=== PATIENT | male | born 1945 | race Caucasian/White ===

== ENCOUNTER 2016-07-07 20:01 | Emergency (ER) | payer SELFPAY ==
--- NOTE | 2016-07-07 21:56 | ER Document Report ---
ED General - General Chief Complaint: Abdominal Pain >50 Stated Complaint: ABDOMINAL PAIN Notes: Patient is a 70-year-old male with past medical history of chronic alcohol abuse in remission for the last 2 months with associated liver cirrhosis and ascites who presents with diffuse, intermittent abdominal pain that has been getting progressively worse for the last several days. States the pain has been present for at least the past several weeks but became more intolerable in the last several days. Does describe as a constant, crampy pain. Nothing improves or worsens the pain. States he's had similar pain in the past when he required large-volume paracentesis. He has not had any vomiting, diarrhea, fever, or altered mental status. He has not seen his primary care physician regarding today's concerns. TRAVEL OUTSIDE OF THE [place] IN LAST 30 DAYS: No - Related Data Allergies/Adverse Reactions: No Known Allergies Allergy (Verified 07/07/16 20:32) Past Medical History - General Information source: Patient - Social History Smoking Status: Never Smoker Chew tobacco use (# tins/day): No Frequency of alcohol use: None Drug Abuse: None Family History: CAD - Mother age 76 of [place], alcohol and tobacco abuse Father age 66 of ulcer, alcohol and tobacco abuse Patient has suicidal ideation: No Patient has homicidal ideation: No Renal/ Medical History: Denies: Hx Peritoneal Dialysis Musculoskeltal Medical History: Reports Hx Gout Past Surgical History: Reports: Hx Abdominal Surgery - "mesh", Hx Herniorrhaphy - Meds for umbilical hernia, Hx Orthopedic Surgery - R rotator cuff surgery - Immunizations Hx Diphtheria, Pertussis, Tetanus Vaccination: Yes Review of Systems - Review of Systems Notes: Constitutional: Negative for fever. HENT: Negative for sore throat. Eyes: Negative for visual changes. Cardiovascular: Negative for chest pain. Respiratory: Negative for shortness of breath. Gastrointestinal: Positive for abdominal pain, negative for vomiting or diarrhea. Genitourinary: Negative for dysuria. Musculoskeletal: Negative for back pain. Skin: Negative for rash. Neurological: Negative for headaches, weakness or numbness. 10 point ROS negative except as marked above and in HPI. Physical Exam - Vital signs Vitals: Temp Pulse Resp BP Pulse Ox 97.5 F 113 H 20 149/87 H 97 07/07/16 20:13 07/07/16 20:13 07/07/16 20:13 07/07/16 20:13 07/07/16 20:13 Interpretation: Tachycardic Notes: PHYSICAL EXAMINATION: GENERAL: Chronically ill in appearance but in no acute distress HEAD: Atraumatic, normocephalic. EYES: Pupils equal round and reactive to light, extraocular movements intact, sclera anicteric, conjunctiva are normal. ENT: nares patent, oropharynx clear without exudates. Moderately dry mucous membranes. NECK: Normal range of motion, supple without lymphadenopathy LUNGS: Breath sounds clear to auscultation bilaterally and equal. No wheezes rales or rhonchi. HEART: Regular tachycardia without murmurs ABDOMEN: Distended, protuberant abdomen with a fluid wave. Diffuse mild tenderness to palpation without rebound or guarding EXTREMITIES: Normal range of motion, no pitting or edema. No cyanosis. NEUROLOGICAL: No focal neurological deficits. Moves all extremities spontaneously and on command. PSYCH: Normal mood, normal affect. SKIN: Warm, Dry, normal turgor, no rashes or lesions noted. Course - Re-evaluation Re-evalutation: 07/07/16 21:54 Patient presents with signs and symptoms concerning for possible spontaneous bacterial peritonitis. Went to diffuse abdominal pain as well as generalized myalgias. Abdominal exam shows diffuse tenderness without localization of the pain. Paracentesis performed under sterile conditions at the bedside without difficulty or complication. The fluid has been sent for cell count and culture at this time. Basic laboratories also be obtained. If fluid is unremarkable, will proceed with diagnostic imaging to better evaluate for possible biliary pathology, bowel obstruction, or ileus although I suspect these less than son clinical history. 07/08/16 02:38 Periotenal tap negative for SBP. Abdominal exam improved at this time, vitals show mild tachycardia but otherwise unremarkable. CT shows ascites without additional findings. Suspect the pain is related to massive volume ascites. No indication at this time for further imaging or laboratories. I have reviewed at length with the patient the need for close outpatient follow-up as well as therapeutic paracentesis. At this time will discharge with return precautions and follow-up recommendations. Verbal discharge instructions given a the bedside and opportunity for questions given. Medication warnings reviewed. Patient is in agreement with this plan and has verbalized understanding of return precautions and the need for primary care follow-up in the next 24-72 hours. - Vital Signs Vital signs: Temp Pulse Resp BP Pulse Ox 98.2 F 113 H 17 133/74 H 95 07/08/16 01:00 07/07/16 20:13 07/08/16 02:01 07/08/16 02:01 07/08/16 02:01 - Laboratory Result Diagrams: 07/07/16 22:25 07/07/16 22:25 Laboratory results interpreted by me: 07/07/16 07/07/16 22:25 22:25 WBC 12.2 H RBC 3.78 L Hgb 12.3 L Hct 37.1 L MCV 98 H RDW 14.6 H Lymphocytes % 11.5 L Absolute Neutrophils 9.2 H Sodium 135.3 L Chloride 97 L BUN 21 H Total Bilirubin 3.9 H AST 64 H Alkaline Phosphatase 150 H Albumin 3.0 L - Diagnostic Test Radiology reviewed: Reports reviewed - EKG Interpretation by Me Additional EKG results interpreted by me: 07/08/16 03:13 Sinus tachycardia. Rate 118. No ST elevations or depressions. QTC 443 Procedures - Paracentesis LLQ Consent obtained: Yes - verbal Paracentesis pre-procedure: Sterile PPE donned, Chloraprep applied Needle size: 2 Paracentesis location: llq Amount/type of drainage: 10cc yellow Number of attempts: 1 Ultrasound guided: Yes Complications: No Discharge - Discharge Clinical Impression: Ascites Qualifiers: Ascites type: due to alcoholic cirrhosis Qualified Code(s): K70.31 - Alcoholic cirrhosis of liver with ascites Abdominal pain Qualifiers: Abdominal location: generalized Qualified Code(s): R10.84 - Generalized abdominal pain Condition: Good Disposition: HOME, SELF-CARE Additional Instructions: You need to follow-up with a primary care doctor to schedule a therapeutic paracentesis with a GI physician. Do not drink alcohol. Please return to emergency room if you develop fever greater than 100.4F, persistent vomiting, worsening pain, or any other symptoms that are concerning to you. Prescriptions: Oxycodone HCl [Oxycontin Ir 5 Mg Tablet] 1 - 2 mg PO Q4H PRN #15 tablet PRN Reason: For Pain Referrals: CARLOTA RAINES MD [ACTIVE STAFF] - Follow up tomorrow
[2016-07-07 22:48] LABS: FLUID TYPE PERITONEAL
[2016-07-07 22:50] LABS: FLUID APPEARANCE CLEAR; FLUID RBC DILUENT USED NONE USED; FLUID RBC SIDE 1 457; FLUID RBC SIDE 2 469
[2016-07-07 22:51] LABS: ABSOLUTE BASOPHILS # (AUTO) 0.1 10^3/uL (0.0-0.2); ABSOLUTE EOSINOPHILS # (AUTO) 0.1 10^3/uL (0.0-0.6); ABSOLUTE LYMPHOCYTES (AUTO) 1.4 10^3/uL (0.5-4.7); ABSOLUTE MONOCYTES (AUTO) 1.4 10^3/uL (0.1-1.4); ABSOLUTE NEUT (AUTO) 9.2 10^3/uL (1.7-8.2); BASOPHILS % (AUTO) 0.8 % (0-2); EOSINOPHILS % (AUTO) 0.5 % (0-6); HEMATOCRIT 37.1 % (37.9-51.0); HEMOGLOBIN 12.3 g/dL (13.5-17.0); HGB HCT DIFFERENCE -0.2; LYMPHOCYTES % (AUTO) 11.5 % (13-45); MEAN CORPUSCULAR HEMOGLOBIN 32.5 pg (27.0-33.4); MEAN CORPUSCULAR HGB CONC 33.1 g/dL (32.0-36.0); MEAN CORPUSCULAR VOLUME 98 fl (80-97); MONOCYTES % (AUTO) 11.8 % (3-13); RED BLOOD COUNT 3.78 10^6/uL (4.35-5.55); RED CELL DISTRIBUTION WIDTH 14.6 % (11.5-14.0); SEGMENTED NEUTROPHILS % (AUTO) 75.4 % (42-78); WHITE BLOOD COUNT 12.2 10^3/uL (4.0-10.5)
[2016-07-07 22:52] LABS: FLUID RBC DILUTION FACTOR 1
[2016-07-07 22:53] LABS: TOTAL RBC SQUARES COUNTED FLD 225
[2016-07-07 23:11] LABS: ALANINE AMINOTRANSFERASE 42 U/L (21-72); ALKALINE PHOSPHATASE 150 U/L (38-126); ANION GAP 8 (5-19); ASPARTATE AMINO TRANSFERASE 64 U/L (17-59); BILIRUBIN,DIRECT 0.1 mg/dL (0.0-0.3); BILIRUBIN,TOTAL 3.9 mg/dL (0.2-1.3); BLOOD UREA NITROGEN 21 mg/dL (7-20); CALCIUM 9.2 mg/dL (8.4-10.2); CARBON DIOXIDE 30 mmol/L (22-30); CHLORIDE 97 mmol/L (98-107); CREATININE RESULT 0.85 mg/dL (0.52-1.25); GLUCOSE 100 mg/dL (75-110); POTASSIUM 4.6 mmol/L (3.6-5.0); SODIUM 135.3 mmol/L (137-145); TOTAL PROTEIN 6.8 g/dL (6.3-8.2)
[2016-07-08 00:32] LABS: PROTHROMBIN TIME 14.7 SEC (11.4-15.4)
[2016-07-08] MEDS ORDERED: OXYCODONE HCL IR 5 MG TABLET PO ONE (03:35)
[2016-07-08 04:46] VITALS: BP 137/77
--- NOTE | 2016-07-08 15:17 | EKG REPORT ---
SEVERITY:- ABNORMAL ECG - SINUS TACHYCARDIA MULTIFORM VENTRICULAR PREMATURE COMPLEXES LEFT AXIS DEVIATION BORDERLINE R WAVE PROGRESSION, ANTERIOR LEADS NONSPECIFIC T ABNORMALITIES, LATERAL LEADS : Confirmed by: Haley Garcia MD 08-Jul-2016 15:16:21
== END 2016-07-08 04:40 | disposition home or self-care (01) ==
LOC: ER 20:01
PROC: 0W9G3ZZ Drainage of Peritoneal Cavity, Percutaneous Approach (ICD-10-PCS; principal; 2016-07-07)
DX: K70.31 Alcoholic cirrhosis of liver with ascites (principal); R00.0 Tachycardia, unspecified; R10.84 Generalized abdominal pain; M79.1 Myalgia
CPT/HCPCS: 36415; 74177; 80053; 82140; 85025; 85610; 87070; 87075; 87205; 89050; 93005; 93010; 99285

== ENCOUNTER 2016-07-17 19:24 | Inpatient (IN) | payer MEDICARE ==
--- NOTE | 2016-07-17 19:44 | ER Document Report ---
ED Fall - General Stated Complaint: FLANK PAIN/POSSIBLE LIVER FAILURE Time seen by provider: 19:43 Mode of Arrival: Medic Information source: Emergency Med Personnel TRAVEL OUTSIDE OF THE [place] IN LAST 30 DAYS: No - HPI Patient complains to provider of: fall, confusion Where: Home Associated symptoms: Dazed/confused Location of injury/pain: Back Quality of pain: Achy Severity: Moderate Pain Level: 2 Notes: Patient is a 70-year-old male brought to the emergency room by EMS for complaints of a fall, patient has a history of alcoholic cirrhosis and ascites, EMS reports that they had to pick him up off the floor, where he was wedged between the dresser and the bed, patient says he fell there 3 days ago and has been unable to get up on his own, he is covered in his own urine and feces, EMS reports that the home that he was living and is deplorable with cockroaches all over the place, patient complains of some low back pain, as well as statistical swelling, states his last alcoholic beverage was April of last year, otherwise he is a poor historian, disheveled, and appears to be chronically ill - Related data Allergies/Adverse Reactions: No Known Allergies Allergy (Verified 07/07/16 20:32) Past Medical History - General Information source: Patient, Emergency Med Personnel - Social History Smoking Status: Unknown if Ever Smoked Family History: CAD - Mother age 76 of [place], alcohol and tobacco abuse Father age 66 of ulcer, alcohol and tobacco abuse Renal/ Medical History: Denies: Hx Peritoneal Dialysis Musculoskeltal Medical History: Reports Hx Gout Past Surgical History: Reports: Hx Abdominal Surgery - "mesh", Hx Herniorrhaphy - Meds for umbilical hernia, Hx Orthopedic Surgery - R rotator cuff surgery - Immunizations Hx Diphtheria, Pertussis, Tetanus Vaccination: Yes Review of Systems - Review of Systems Constitutional: Weakness EENT: No symptoms reported Cardiovascular: No symptoms reported Respiratory: No symptoms reported Gastrointestinal: Abdomen distended Genitourinary: Incontinence Male Genitourinary: No symptoms reported Musculoskeletal: Back pain Skin: Other - Jaundice Hematologic/Lymphatic: No symptoms reported Neurological/Psychological: Confusion -: Yes All other systems reviewed and negative Physical Exam - Vital signs Vitals: Temp Pulse Resp Pulse Ox 97.2 F 123 H 22 H 94 07/17/16 19:43 07/17/16 19:43 07/17/16 19:43 07/17/16 19:43 Interpretation: Tachycardic - General General appearance: Alert, Other - Chronically ill-appearing and confused - HEENT Head: Normocephalic, Atraumatic Eyes: Normal Conjunctiva: Icteric Extraocular movements intact: Yes Eyelashes: Normal Pupils: PERRL Mucous membranes: Dry - Respiratory Respiratory status: No respiratory distress Chest status: Nontender Breath sounds: Normal Chest palpation: Normal - Cardiovascular Rhythm: Regular Heart sounds: Normal auscultation Murmur: No - Abdominal Inspection: Caput medussa Distension: Distended, Fluid wave Tenderness: Nontender Organomegaly: No organomegaly - Genitourinary Tenderness: Other - Edematous scrotum - Back Back: Normal, Other - Patient with 23-4 cm areas of stage II ulceration - Extremities General upper extremity: Normal inspection, Nontender, Normal color, Normal ROM , Normal temperature General lower extremity: Normal inspection, Nontender, Edema, Normal color, Normal ROM, Normal temperature. No: Lakisha's sign - Neurological Cognition: Confused [place] Coma Scale Eye Opening: Spontaneous [place] Coma Scale Verbal: Confused [place] Coma Scale Motor: Obeys Commands Tanja Coma Scale Total: 14 Speech: Other - slurred Sensory: Normal - Psychological Associated symptoms: Normal affect, Normal mood - Skin Skin Temperature: Warm Skin Moisture: Dry Skin Color: Jaundiced Course - Re-evaluation Re-evalutation: 07/18/16 06:20 Patient in poor health, chronically, disheveled, odorous, jaundiced, tachycardic , discussed with the hospitalist who agrees to admit for further evaluation and treatment - Vital Signs Vital signs: Temp Pulse Resp BP Pulse Ox 97.8 F 123 H 16 122/82 93 07/18/16 04:04 07/17/16 19:43 07/18/16 04:01 07/18/16 04:00 07/18/16 04:01 - Laboratory Result Diagrams: 07/17/16 22:30 07/17/16 21:00 Laboratory results interpreted by me: 07/17/16 07/17/16 07/17/16 21:00 21:00 21:00 RBC Hgb Hct RDW Plt Count Monocytes % Absolute Monocytes PT 17.6 H APTT 36.4 H BUN 29 H Total Bilirubin 4.7 H Direct Bilirubin 0.8 H AST 69 H Alkaline Phosphatase 143 H Ammonia 40.0 H Albumin 3.0 L Urine Protein Urine Ketones Urine Blood Urine Bilirubin Urine Urobilinogen Ur Leukocyte Esterase 07/17/16 07/17/16 22:30 22:55 RBC 3.90 L Hgb 12.4 L Hct 36.8 L RDW 14.9 H Plt Count 149 L Monocytes % 17.3 H Absolute Monocytes 1.7 H PT APTT BUN Total Bilirubin Direct Bilirubin AST Alkaline Phosphatase Ammonia Albumin Urine Protein 30 H Urine Ketones TRACE H Urine Blood MODERATE H Urine Bilirubin MODERATE H Urine Urobilinogen 4.0 H Ur Leukocyte Esterase MODERATE H - Diagnostic Test Radiology reviewed: Image reviewed, Reports reviewed - Transfer of Care Care transferred to following provider: Dr. Locke Critical Care Note - Critical Care Note Total time excluding time spent on procedures (mins): 30 Comments: Patient tachycardic, confused, hypoxic at times, with end-stage liver disease, requiring admission to the hospital service Discharge - Discharge Clinical Impression: Hepatic encephalopathy, Generalized weakness, End stage liver disease Urinary tract infection Qualifiers: Urinary tract infection type: site unspecified Hematuria presence: without hematuria Qualified Code(s): N39.0 - Urinary tract infection, site not specified Condition: Fair Disposition: ADMITTED INPATIENT Admitting Provider: Hospitalist Unit Admitted: Telemetry
[2016-07-17 21:49] LABS: PROTHROMBIN TIME 17.6 SEC (11.4-15.4)
[2016-07-17 21:50] LABS: PARTIAL THROMBOPLASTIN TIME 36.4 SEC (23.5-35.8)
[2016-07-17 22:04] LABS: ALANINE AMINOTRANSFERASE 44 U/L (21-72); ALCOHOL < 10 mg/dL (NONE DETECTED); ALKALINE PHOSPHATASE 143 U/L (38-126); ANION GAP 15 (5-19); ASPARTATE AMINO TRANSFERASE 69 U/L (17-59); BILIRUBIN,DIRECT 0.8 mg/dL (0.0-0.3); BILIRUBIN,TOTAL 4.7 mg/dL (0.2-1.3); BLOOD UREA NITROGEN 29 mg/dL (7-20); CALCIUM 9.8 mg/dL (8.4-10.2); CARBON DIOXIDE 25 mmol/L (22-30); CHLORIDE 99 mmol/L (98-107); CREATINE KINASE 108 U/L (55-170); CREATININE RESULT 1.03 mg/dL (0.52-1.25); GLUCOSE 79 mg/dL (75-110); LIPASE 137.3 U/L (23-300); POTASSIUM 4.3 mmol/L (3.6-5.0); SODIUM 138.6 mmol/L (137-145); TOTAL PROTEIN 6.8 g/dL (6.3-8.2)
[2016-07-17 22:15] LABS: CREATINE KINASE MB 1.53 ng/mL (<4.55); TROPONIN I 0.018 ng/mL
[2016-07-17 22:41] LABS: ABSOLUTE BASOPHILS # (AUTO) 0.1 10^3/uL (0.0-0.2); ABSOLUTE EOSINOPHILS # (AUTO) 0.1 10^3/uL (0.0-0.6); ABSOLUTE LYMPHOCYTES (AUTO) 1.3 10^3/uL (0.5-4.7); ABSOLUTE MONOCYTES (AUTO) 1.7 10^3/uL (0.1-1.4); ABSOLUTE NEUT (AUTO) 6.6 10^3/uL (1.7-8.2); BASOPHILS % (AUTO) 0.7 % (0-2); EOSINOPHILS % (AUTO) 0.7 % (0-6); HEMATOCRIT 36.8 % (37.9-51.0); HEMOGLOBIN 12.4 g/dL (13.5-17.0); HGB HCT DIFFERENCE 0.4; LYMPHOCYTES % (AUTO) 13.2 % (13-45); MEAN CORPUSCULAR HEMOGLOBIN 31.8 pg (27.0-33.4); MEAN CORPUSCULAR HGB CONC 33.6 g/dL (32.0-36.0); MONOCYTES % (AUTO) 17.3 % (3-13); RED CELL DISTRIBUTION WIDTH 14.9 % (11.5-14.0); SEGMENTED NEUTROPHILS % (AUTO) 68.1 % (42-78); WHITE BLOOD COUNT 9.6 10^3/uL (4.0-10.5)
[2016-07-17 22:43] LABS: MEAN CORPUSCULAR VOLUME 94 fl (80-97)
[2016-07-17 23:17] LABS: APPEARANCE,URINE CLOUDY; BILIRUBIN,URINE MODERATE (NEGATIVE); GLUCOSE, URINE NEGATIVE (NEGATIVE); KETONES,URINE TRACE mg/dL (NEGATIVE); LEUKOCYTE ESTERASE,URINE MODERATE (NEGATIVE); NITRITE,URINE NEGATIVE (NEGATIVE); PROTEIN,URINE 30 mg/dL (NEGATIVE); URINE SPECIFIC GRAVITY 1.017
[2016-07-17] MEDS ORDERED: NORMAL SALINE 1000 ML 500 ML IV PRN (23:34)
[2016-07-18] MEDS ORDERED: CEFTRIAXONE INJ 1000 MG VIAL IV ONE (02:00)
[2016-07-18] MEDS ORDERED: LACTULOSE SYRUP 20 GM/30 ML UDCUP PO ONE (05:14)
[2016-07-18] MEDS ORDERED: FUROSEMIDE INJ/PF 40 MG/4 ML SDV IV SCH (05:15)
[2016-07-18] MEDS ORDERED: LEVOFLOXACIN 750 MG/D5W RTU 750 MG/150 ML RTUPB IV ONE (06:00)
[2016-07-18 06:05] LABS: URINE BARBITURATES SCREEN NEGATIVE; URINE METHADONE SCREEN NEGATIVE; URINE OPIATES LOW NEGATIVE; URINE PHENCYCLIDINE SCREEN NEGATIVE
[2016-07-18] MEDS ORDERED: MAG HYDROX/AL HYDROX/SIMETH SUSP 30 ML UDCUP PO PRN (06:28)
[2016-07-18] MEDS ORDERED: IPRATROPIUM/ALBUTEROL 0.5-2.5 MG/3 ML AMPUL NEB PRN (06:28)
[2016-07-18] MEDS ORDERED: NORMAL SALINE 1000 ML 1,000 ML IV ONE (06:29)
--- NOTE | 2016-07-18 08:18 | PDOC H&P ---
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 He was brought to the emergency room via EMS who found him disheveled, confused and covered in feces. Brought to the emergency room for evaluation and complains of diffuse pain, urinalysis reveals leukocyte esterase and greater than 100 WBCs, he started on empiric antibiotics and referred to the hospitalist for admission. His abdomen is soft nontender and A urine culture 1 month ago grew E faecalis. Past Medical History Cardiac Medical History: Reports: Hypertension Pulmonary Medical History: Reports: Chronic Obstructive Pulmonary Disease (COPD) GI Medical History: Reports: Cirrhosis Musculoskeltal Medical History: Reports: Gout Psychiatric Medical History: Reports: Alcohol Dependency Past Surgical History Past Surgical History: Reports: Herniorrhaphy - Meds for umbilical hernia, Orthopedic Surgery - R rotator cuff surgery Social History Information Source: Patient, [facility] Records Lives with: Alone Smoking Status: Unknown if Ever Smoked Frequency of Alcohol Use: Heavy Hx Recreational Drug Use: No Hx Prescription Drug Abuse: No - Advance Directive Resuscitation Status: Full Code Family History Family History: CAD - Mother age 76 of [place], alcohol and tobacco abuse Father age 66 of ulcer, alcohol and tobacco abuse Parental Family History Reviewed: Yes Children Family History Reviewed: Yes Sibling(s) Family History Reviewed.: Yes Medication/Allergy Home Medications: Oxycodone HCl [Oxycontin Ir 5 Mg Tablet] 1 - 2 mg PO Q4H PRN #15 tablet Allergies/Adverse Reactions: No Known Allergies Allergy (Verified 07/07/16 20:32) Review of Systems ROS unobtainable: Due to mental status Physical Exam Vital Signs: Temp Pulse Resp BP Pulse Ox 97.4 F 72 18 138/83 H 92 07/18/16 06:52 07/18/16 06:52 07/18/16 06:52 07/18/16 06:52 07/18/16 06:52 Intake & Output 07/16/16 07/17/16 07/18/16 11:59 11:59 11:59 Weight 119.7 kg General appearance: PRESENT: disheveled, mild distress, obese Head exam: PRESENT: atraumatic, normocephalic Eye exam: PRESENT: conjunctiva pink, EOMI, PERRLA. ABSENT: scleral icterus Ear exam: PRESENT: normal external ear exam Mouth exam: PRESENT: dry mucosa Neck exam: ABSENT: carotid bruit, JVD, lymphadenopathy, thyromegaly Respiratory exam: PRESENT: clear to auscultation farhad, unlabored. ABSENT: crackles, rales, rhonchi, wheezes Cardiovascular exam: PRESENT: RRR. ABSENT: diastolic murmur, rubs, systolic murmur Pulses: PRESENT: normal dorsalis pedis pul Vascular exam: PRESENT: normal capillary refill GI/Abdominal exam: PRESENT: ascites, firm, hyperactive bowel sounds. ABSENT: guarding, hernia, Marie's sign, rebound, tenderness Rectal exam: PRESENT: deferred Extremities exam: PRESENT: +2 edema Neurological exam: PRESENT: altered, awake, CN II-XII grossly intact Psychiatric exam: PRESENT: unusual affect Focused psych exam: PRESENT: restlessness Skin exam: PRESENT: other - Patient has 2 3 x 3 cm sacral decubiti stage II Results Impressions: Chest X-Ray 07/17/16 22:40 IMPRESSION: NO ACUTE RADIOGRAPHIC FINDING IN THE CHEST. Pelvis X-Ray 07/17/16 22:40 IMPRESSION: NO ACUTE OSSEOUS ABNORMALITY. DEGENERATIVE CHANGE ABOVE. Limited or Localized CT 07/18/16 02:48 IMPRESSION: PUNCTATE NONOBSTRUCTING LEFT RENAL CALCULUS WITHOUT LOWER URINARY TRACT STONES OR HYDRONEPHROSIS. STABLE DEGREE OF LARGE VOLUME ASCITES IN THE SETTING OF CIRRHOSIS. DIVERTICULOSIS WITHOUT EVIDENCE OF DIVERTICULITIS. Assessment & Plan - Diagnosis (1) Enterococcus faecalis infection Is this a current diagnosis for this admission?: YesPlan: E faecalis of the urine noted 1 month ago UA strongly suggestive of pyuria, evaluation microbiology guiding antibiotics reevaluation of CBC and chemistry (2) End stage liver disease Is this a current diagnosis for this admission?: YesPlan: Patient has chronic elevation of bilirubin with mild coagulopathy, Avoiding hepatotoxic meds, Aldactone, Lasix, vitamin K and lactulose, reevaluation of LFTs (3) Hepatic encephalopathy Is this a current diagnosis for this admission?: YesPlan: Lactulose and clinical evaluation - Time Time Spent: 50 to 70 Minutes
[2016-07-18] MEDS ORDERED: PHYTONADIONE 5 MG TABLET PO ONE (09:00)
[2016-07-18] MEDS: DOCUSATE SODIUM 100 MG CAPSULE PO SCH ×2 (09:40→17:14)
--- NOTE | 2016-07-18 09:40 | PDOC PROGRESS REPORT ---
Subjective Progress Note for:: 07/18/16 Subjective:: The patient is currently seen on rounds. The patient is quite groggy. The patient's ammonia was elevated. She does admit to some abdominal tenderness. The patient states that he has had a paracentesis in the past and agrees to another one today. There've been no reported episodes of vomiting nor diarrhea. The patient is unable to provide any reliable history. Physical Exam Vital Signs: Temp Pulse Resp BP Pulse Ox 97.1 F 117 H 14 147/70 H 98 07/18/16 07:00 07/18/16 07:00 07/18/16 07:00 07/18/16 07:00 07/18/16 07:00 Intake & Output 07/16/16 07/17/16 07/18/16 23:59 23:59 23:59 Weight 119.7 kg General appearance: PRESENT: cooperative, disheveled Head exam: PRESENT: atraumatic, normocephalic Eye exam: PRESENT: conjunctiva pale, EOMI, PERRLA, scleral icterus Ear exam: PRESENT: normal external ear exam Mouth exam: PRESENT: moist, tongue midline Neck exam: ABSENT: carotid bruit, JVD, lymphadenopathy, thyromegaly Respiratory exam: PRESENT: decreased breath sounds, symmetrical, unlabored. ABSENT: rales, rhonchi, tachypnea, wheezes Cardiovascular exam: PRESENT: irregular rhythm. ABSENT: diastolic murmur, rubs , systolic murmur Pulses: PRESENT: +1 pedal pulses bilateral Vascular exam: PRESENT: pallor GI/Abdominal exam: PRESENT: ascites, distended, firm, normal bowel sounds, tenderness. ABSENT: guarding, mass, organolmegaly, rebound, rigid Rectal exam: PRESENT: deferred Extremities exam: PRESENT: pedal edema, +1 edema. ABSENT: calf tenderness, clubbing Neurological exam: PRESENT: altered - Groggy and delayed, awake, oriented to person, oriented to place, oriented to time, oriented to situation, CN II-XII grossly intact. ABSENT: motor sensory deficit Psychiatric exam: PRESENT: flat affect, unusual affect. ABSENT: homicidal ideation, suicidal ideation Skin exam: PRESENT: dry, intact, jaundice, warm. ABSENT: cyanosis, rash Results Laboratory Results: Labs- Last Values WBC 9.6 10^3/uL (4.0-10.5) 07/17/16 22:30 RBC 3.90 10^6/uL (4.35-5.55) L 07/17/16 22:30 Hgb 12.4 g/dL (13.5-17.0) L 07/17/16 22:30 Hct 36.8 % (37.9-51.0) L 07/17/16 22:30 MCV 94 fl (80-97) D 07/17/16 22:30 MCH 31.8 pg (27.0-33.4) 07/17/16 22:30 MCHC 33.6 g/dL (32.0-36.0) 07/17/16 22:30 RDW 14.9 % (11.5-14.0) H 07/17/16 22:30 Plt Count 149 10^3/uL (150-450) L 07/17/16 22:30 Seg Neutrophils % 68.1 % (42-78) 07/17/16 22:30 Lymphocytes % 13.2 % (13-45) 07/17/16 22:30 Monocytes % 17.3 % (3-13) H 07/17/16 22:30 Eosinophils % 0.7 % (0-6) 07/17/16 22:30 Basophils % 0.7 % (0-2) 07/17/16 22:30 Absolute Neutrophils 6.6 10^3/uL (1.7-8.2) 07/17/16 22:30 Absolute Lymphocytes 1.3 10^3/uL (0.5-4.7) 07/17/16 22:30 Absolute Monocytes 1.7 10^3/uL (0.1-1.4) H 07/17/16 22:30 Absolute Eosinophils 0.1 10^3/uL (0.0-0.6) 07/17/16 22:30 Absolute Basophils 0.1 10^3/uL (0.0-0.2) 07/17/16 22:30 Platelet Estimate Cancelled 07/17/16 21:00 PT 17.6 SEC (11.4-15.4) H 07/17/16 21:00 INR 1.39 07/17/16 21:00 APTT 36.4 SEC (23.5-35.8) H 07/17/16 21:00 Sodium 138.6 mmol/L (137-145) 07/17/16 21:00 Potassium 4.3 mmol/L (3.6-5.0) 07/17/16 21:00 Chloride 99 mmol/L (98-107) 07/17/16 21:00 Carbon Dioxide 25 mmol/L (22-30) 07/17/16 21:00 Anion Gap 15 (5-19) 07/17/16 21:00 BUN 29 mg/dL (7-20) H 07/17/16 21:00 Creatinine 1.03 mg/dL (0.52-1.25) 07/17/16 21:00 Est GFR ( Amer) > 60 (>60) 07/17/16 21:00 Est GFR (Non-Af Amer) > 60 (>60) 07/17/16 21:00 Glucose 79 mg/dL (75-110) 07/17/16 21:00 POC Glucose 83 mg/dL (70-110) 07/18/16 04:01 Calcium 9.8 mg/dL (8.4-10.2) 07/17/16 21:00 Total Bilirubin 4.7 mg/dL (0.2-1.3) H 07/17/16 21:00 Direct Bilirubin 0.8 mg/dL (0.0-0.3) H 07/17/16 21:00 AST 69 U/L (17-59) H 07/17/16 21:00 ALT 44 U/L (21-72) 07/17/16 21:00 Alkaline Phosphatase 143 U/L (38-126) H 07/17/16 21:00 Ammonia 40.0 umol/L (9-33) H 07/17/16 21:00 Creatine Kinase 108 U/L (55-170) 07/17/16 21:00 CK-MB (CK-2) 1.53 ng/mL (<4.55) 07/17/16 21:00 Troponin I 0.018 ng/mL 07/17/16 21:00 Total Protein 6.8 g/dL (6.3-8.2) 07/17/16 21:00 Albumin 3.0 g/dL (3.5-5.0) L 07/17/16 21:00 Lipase 137.3 U/L (23-300) 07/17/16 21:00 Urine Color NEHEMIAS 07/17/16 22:55 Urine Appearance CLOUDY 07/17/16 22:55 Urine pH 5.0 (5.0-9.0) 07/17/16 22:55 Ur Specific [place] 1.017 07/17/16 22:55 Urine Protein 30 mg/dL (NEGATIVE) H 07/17/16 22:55 Urine Glucose (UA) NEGATIVE mg/dL (NEGATIVE) 07/17/16 22:55 Urine Ketones TRACE mg/dL (NEGATIVE) H 07/17/16 22:55 Urine Blood MODERATE (NEGATIVE) H 07/17/16 22:55 Urine Nitrite NEGATIVE (NEGATIVE) 07/17/16 22:55 Urine Bilirubin MODERATE (NEGATIVE) H 07/17/16 22:55 Urine Urobilinogen 4.0 mg/dL (<2.0) H 07/17/16 22:55 Ur Leukocyte Esterase MODERATE (NEGATIVE) H 07/17/16 22:55 Urine WBC (Auto) 113 /HPF 07/17/16 22:55 Urine RBC (Auto) 7 /HPF 07/17/16 22:55 U Hyaline Cast (Auto) 6 /LPF 07/17/16 22:55 Urine WBC Clumps MANY /HPF 07/17/16 22:55 Squamous Epi Cells Auto 20 /HPF 07/17/16 22:55 Urine Mucus (Auto) MANY /LPF 07/17/16 22:55 Urine Ascorbic Acid NEGATIVE (NEGATIVE) 07/17/16 22:55 Urine Opiates Screen NEGATIVE 07/17/16 22:55 Urine Methadone Screen NEGATIVE 07/17/16 22:55 Ur Barbiturates Screen NEGATIVE 07/17/16 22:55 Ur Phencyclidine Scrn NEGATIVE 07/17/16 22:55 Ur Amphetamines Screen NEGATIVE 07/17/16 22:55 U Benzodiazepines Scrn NEGATIVE 07/17/16 22:55 Urine Cocaine Screen NEGATIVE 07/17/16 22:55 U Marijuana (THC) Screen NEGATIVE 07/17/16 22:55 Serum Alcohol < 10 mg/dL (NONE DETECTED) 07/17/16 21:00 Slides for Path Review Cancelled 07/17/16 21:00 Impressions: Chest X-Ray 07/17/16 22:40 IMPRESSION: NO ACUTE RADIOGRAPHIC FINDING IN THE CHEST. Pelvis X-Ray 07/17/16 22:40 IMPRESSION: NO ACUTE OSSEOUS ABNORMALITY. DEGENERATIVE CHANGE ABOVE. Limited or Localized CT 07/18/16 02:48 IMPRESSION: PUNCTATE NONOBSTRUCTING LEFT RENAL CALCULUS WITHOUT LOWER URINARY TRACT STONES OR HYDRONEPHROSIS. STABLE DEGREE OF LARGE VOLUME ASCITES IN THE SETTING OF CIRRHOSIS. DIVERTICULOSIS WITHOUT EVIDENCE OF DIVERTICULITIS. Assessment & Plan - Diagnosis (1) End stage liver disease Is this a current diagnosis for this admission?: YesPlan: The patient's ammonia is elevated. Will schedule lactulose and repeat in the a.m. Will add [place] as well. Will schedule paracentesis and obtain culture. (2) Hepatic encephalopathy Is this a current diagnosis for this admission?: YesPlan: Secondary to #1. (3) Urinary tract infection Qualifiers: Urinary tract infection type: site unspecified Hematuria presence: without hematuria Qualified Code(s): N39.0 - Urinary tract infection, site not specified Is this a current diagnosis for this admission?: YesPlan: Currently awaiting urine culture. Given the patient's history will continue Levaquin. (4) Alcohol abuse Is this a current diagnosis for this admission?: YesPlan: The patient does not have a current dependency as it appears the patient has not drank since February 2016. Will substitute B vitamins. (5) Enterococcus faecalis infection Is this a current diagnosis for this admission?: No (6) Hypertensive urgency Is this a current diagnosis for this admission?: YesPlan: Will add beta susie (7) Hypoalbuminemia Is this a current diagnosis for this admission?: Yes (8) DVT prophylaxis Is this a current diagnosis for this admission?: YesPlan: Will continue subcutaneous heparin - Time Time Spent with patient: 35 or more minutes Medications reviewed and adjusted accordingly: Yes Anticipated discharge: Home Within: within 48 hours
[2016-07-18] MEDS: SPIRONOLACTONE 25 MG TABLET PO SCH ×2 (09:41→23:22)
[2016-07-18] MEDS ORDERED: THIAMINE HCL 100 MG TABLET PO ONE (11:00)
[2016-07-18] MEDS ORDERED: RIFAXIMIN 550 MG TABLET PO ONE (11:00)
[2016-07-18] MEDS: METOPROLOL TARTRATE 50 MG TABLET PO SCH ×2 (11:08→21:02)
[2016-07-18] MEDS: LACTULOSE SYRUP 20 GM/30 ML UDCUP PO SCH ×3 (11:08→17:14)
[2016-07-18] MEDS: FOLIC ACID 1 MG TABLET PO SCH (11:08)
[2016-07-18] MEDS: HEPARIN SOD (PORCINE) 5,000 UNIT/ML 1 ML SYRINGE SUBCUT SCH ×2 (13:51→22:10)
[2016-07-18 14:13] LABS: ALANINE AMINOTRANSFERASE 44 U/L (21-72); ALBUMIN 2.6 g/dL (3.5-5.0); ALKALINE PHOSPHATASE 117 U/L (38-126); ANION GAP 11 (5-19); ASPARTATE AMINO TRANSFERASE 55 U/L (17-59); BILIRUBIN,DIRECT 0.6 mg/dL (0.0-0.3); BILIRUBIN,TOTAL 4.2 mg/dL (0.2-1.3); BLOOD UREA NITROGEN 29 mg/dL (7-20); CALCIUM 9.2 mg/dL (8.4-10.2); CARBON DIOXIDE 26 mmol/L (22-30); CHLORIDE 99 mmol/L (98-107); CREATININE RESULT 1.06 mg/dL (0.52-1.25); GLUCOSE 138 mg/dL (75-110); POTASSIUM 3.8 mmol/L (3.6-5.0); SODIUM 135.9 mmol/L (137-145); TOTAL PROTEIN 5.8 g/dL (6.3-8.2)
[2016-07-18] MEDS: RIFAXIMIN 550 MG TABLET PO SCH (17:14)
[2016-07-19] MEDS: HEPARIN SOD (PORCINE) 5,000 UNIT/ML 1 ML SYRINGE SUBCUT SCH ×3 (06:03→22:48)
[2016-07-19 08:18] LABS: ABSOLUTE EOSINOPHILS # (AUTO) 0.2 10^3/uL (0.0-0.6); ABSOLUTE LYMPHOCYTES (AUTO) 1.5 10^3/uL (0.5-4.7); ABSOLUTE MONOCYTES (AUTO) 1.5 10^3/uL (0.1-1.4); ABSOLUTE NEUT (AUTO) 7.7 10^3/uL (1.7-8.2); BASOPHILS % (AUTO) 0.2 % (0-2); EOSINOPHILS % (AUTO) 1.9 % (0-6); HEMATOCRIT 41.7 % (37.9-51.0); HEMOGLOBIN 14.2 g/dL (13.5-17.0); HGB HCT DIFFERENCE 0.9; LYMPHOCYTES % (AUTO) 13.9 % (13-45); MEAN CORPUSCULAR HEMOGLOBIN 32.3 pg (27.0-33.4); MEAN CORPUSCULAR HGB CONC 34.1 g/dL (32.0-36.0); MEAN CORPUSCULAR VOLUME 95 fl (80-97); MONOCYTES % (AUTO) 13.4 % (3-13); RED CELL DISTRIBUTION WIDTH 14.8 % (11.5-14.0); SEGMENTED NEUTROPHILS % (AUTO) 70.6 % (42-78); WHITE BLOOD COUNT 10.9 10^3/uL (4.0-10.5)
[2016-07-19 08:33] LABS: ALANINE AMINOTRANSFERASE 45 U/L (21-72); ALBUMIN 2.5 g/dL (3.5-5.0); ALKALINE PHOSPHATASE 130 U/L (38-126); ANION GAP 9 (5-19); ASPARTATE AMINO TRANSFERASE 58 U/L (17-59); BILIRUBIN,DIRECT 0.3 mg/dL (0.0-0.3); BILIRUBIN,TOTAL 4.1 mg/dL (0.2-1.3); BLOOD UREA NITROGEN 30 mg/dL (7-20); CALCIUM 9.4 mg/dL (8.4-10.2); CARBON DIOXIDE 27 mmol/L (22-30); CHLORIDE 101 mmol/L (98-107); CREATININE RESULT 1.13 mg/dL (0.52-1.25); GLUCOSE 103 mg/dL (75-110); POTASSIUM 3.8 mmol/L (3.6-5.0); SODIUM 136.5 mmol/L (137-145); TOTAL PROTEIN 5.9 g/dL (6.3-8.2)
[2016-07-19] MEDS ORDERED: LEVOFLOXACIN 750 MG/D5W RTU 750 MG/150 ML RTUPB IV SCH (10:00)
[2016-07-19] MEDS: DOCUSATE SODIUM 100 MG CAPSULE PO SCH ×2 (10:38→18:54)
[2016-07-19] MEDS: FOLIC ACID 1 MG TABLET PO SCH (10:38)
[2016-07-19] MEDS: FUROSEMIDE 40 MG TABLET PO SCH (10:38)
[2016-07-19] MEDS: LACTULOSE SYRUP 20 GM/30 ML UDCUP PO SCH ×3 (10:39→18:54)
[2016-07-19] MEDS: SPIRONOLACTONE 25 MG TABLET PO SCH ×2 (10:39→22:54)
[2016-07-19] MEDS: METOPROLOL TARTRATE 50 MG TABLET PO SCH ×2 (10:39→22:54)
[2016-07-19] MEDS: THIAMINE HCL 100 MG TABLET PO SCH (10:41)
[2016-07-19] MEDS: RIFAXIMIN 550 MG TABLET PO SCH ×2 (10:42→18:54)
[2016-07-19] MEDS ORDERED: ONDANSETRON 4 MG TAB.RAPDIS PO PRN (10:43)
[2016-07-19] MEDS ORDERED: LEVOFLOXACIN 750 MG TABLET PO ONE (12:00)
--- NOTE | 2016-07-19 12:28 | PDOC PROGRESS REPORT ---
Subjective Progress Note for:: 07/19/16 Subjective:: Patient is a 70-year-old male, seen on morning rounds. He presently is resting comfortably in bed. He denies any shortness of breath, cough or dyspnea. He denies any chest pain, dizziness, or headache. He states he has some nausea, denies vomiting or abdominal pain. He underwent paracentesis yesterday afternoon with 5 L of ascites removed. He states his abdominal pain did dissipate after that procedure. He continues to be somewhat lethargic. His ammonia level has improved today however. He denies any other complaints at the present time. Physical Exam Vital Signs: Temp Pulse Resp BP Pulse Ox 97.7 F 92 14 118/68 99 07/19/16 07:26 07/19/16 07:26 07/19/16 07:26 07/19/16 07:26 07/19/16 07:26 Intake & Output 07/18/16 07/19/16 07/20/16 06:59 06:59 06:59 Intake Total 1011 Balance 1011 Weight 119.7 kg 119.7 kg General appearance: PRESENT: no acute distress, disheveled, obese, well- developed, well-nourished Head exam: PRESENT: atraumatic, normocephalic Eye exam: PRESENT: conjunctiva pink, EOMI, PERRLA. ABSENT: scleral icterus Ear exam: PRESENT: normal external ear exam Mouth exam: PRESENT: moist, tongue midline Neck exam: ABSENT: carotid bruit, JVD, lymphadenopathy, thyromegaly Respiratory exam: PRESENT: clear to auscultation farhad. ABSENT: rales, rhonchi, wheezes Pulses: PRESENT: normal dorsalis pedis pul Vascular exam: PRESENT: normal capillary refill GI/Abdominal exam: PRESENT: ascites, distended, normal bowel sounds, soft Rectal exam: PRESENT: deferred Extremities exam: PRESENT: full ROM. ABSENT: calf tenderness, clubbing, pedal edema Musculoskeletal exam: PRESENT: full ROM, normal inspection Neurological exam: PRESENT: alert, altered, awake, oriented to person, oriented to situation, CN II-XII grossly intact Psychiatric exam: PRESENT: flat affect Skin exam: PRESENT: dry, intact, warm. ABSENT: cyanosis, rash Results Laboratory Results: 07/19/16 07:57 07/19/16 07:57 07/18/16 07/19/16 07/19/16 13:20 07:57 07:57 WBC 10.9 H RBC 4.40 Hgb 14.2 Hct 41.7 MCV 95 MCH 32.3 MCHC 34.1 RDW 14.8 H Plt Count 148 L Seg Neutrophils % 70.6 Lymphocytes % 13.9 Monocytes % 13.4 H Eosinophils % 1.9 Basophils % 0.2 Absolute Neutrophils 7.7 Absolute Lymphocytes 1.5 Absolute Monocytes 1.5 H Absolute Eosinophils 0.2 Absolute Basophils 0.0 Sodium 135.9 L 136.5 L Potassium 3.8 3.8 Chloride 99 101 Carbon Dioxide 26 27 Anion Gap 11 9 BUN 29 H 30 H Creatinine 1.06 1.13 Est GFR ( Amer) > 60 > 60 Est GFR (Non-Af Amer) > 60 > 60 Glucose 138 H 103 Calcium 9.2 9.4 Total Bilirubin 4.2 H 4.1 H AST 55 58 ALT 44 45 Alkaline Phosphatase 117 130 H Ammonia Total Protein 5.8 L 5.9 L Albumin 2.6 L 2.5 L 07/19/16 07:57 WBC RBC Hgb Hct MCV MCH MCHC RDW Plt Count Seg Neutrophils % Lymphocytes % Monocytes % Eosinophils % Basophils % Absolute Neutrophils Absolute Lymphocytes Absolute Monocytes Absolute Eosinophils Absolute Basophils Sodium Potassium Chloride Carbon Dioxide Anion Gap BUN Creatinine Est GFR ( Amer) Est GFR (Non-Af Amer) Glucose Calcium Total Bilirubin AST ALT Alkaline Phosphatase Ammonia 21.2 Total Protein Albumin Impressions: Chest X-Ray 07/17/16 22:40 IMPRESSION: NO ACUTE RADIOGRAPHIC FINDING IN THE CHEST. Pelvis X-Ray 07/17/16 22:40 IMPRESSION: NO ACUTE OSSEOUS ABNORMALITY. DEGENERATIVE CHANGE ABOVE. Paracentesis Ultrasound 07/18/16 00:00 IMPRESSION: Successful ultrasound-guided diagnostic and therapeutic paracentesis Limited or Localized CT 07/18/16 02:48 IMPRESSION: PUNCTATE NONOBSTRUCTING LEFT RENAL CALCULUS WITHOUT LOWER URINARY TRACT STONES OR HYDRONEPHROSIS. STABLE DEGREE OF LARGE VOLUME ASCITES IN THE SETTING OF CIRRHOSIS. DIVERTICULOSIS WITHOUT EVIDENCE OF DIVERTICULITIS. Assessment & Plan - Diagnosis (1) Hepatic encephalopathy Is this a current diagnosis for this admission?: YesPlan: Patient with ammonia levels in the 40s upon arrival. Improved today to 21 with lactulose therapy. Most likely secondary to noncompliance of treatment regimen of his end-stage liver disease. (2) End stage liver disease Is this a current diagnosis for this admission?: YesPlan: Continue current medications. Patient had 5 liters of ascites removed by paracentesis yesterday (3) Urinary tract infection Qualifiers: Urinary tract infection type: site unspecified Hematuria presence: without hematuria Qualified Code(s): N39.0 - Urinary tract infection, site not specified Is this a current diagnosis for this admission?: YesPlan: Continue levaquin , now that he's more awake will transition to oral (4) Alcohol abuse Is this a current diagnosis for this admission?: YesPlan: Folic acid and thiamine. Patient has not drank since Feb 2016 (5) Hypoalbuminemia Is this a current diagnosis for this admission?: YesPlan: Will monitor - Time Time Spent with patient: 25-34 minutes Critical Time spent with patient: 15-24 minutes Medications reviewed and adjusted accordingly: Yes
[2016-07-19] MEDS ORDERED: METOPROLOL TARTRATE 50 MG TABLET PO SCH (23:59)
[2016-07-20] MEDS ORDERED: NORMAL SALINE 1000 ML 500 ML IV ONE (00:02)
[2016-07-20] MEDS ORDERED: SPIRONOLACTONE 25 MG TABLET PO SCH ×2 (00:02→22:00)
[2016-07-20] MEDS ORDERED: PROMETHAZINE HCL INJ 25 MG/1 ML VIAL IV PRN (00:40)
[2016-07-20] MEDS: HEPARIN SOD (PORCINE) 5,000 UNIT/ML 1 ML SYRINGE SUBCUT SCH ×3 (06:14→22:48)
[2016-07-20 07:21] LABS: ABSOLUTE LYMPHOCYTES (AUTO) 0.9 10^3/uL (0.5-4.7); ABSOLUTE MONOCYTES (AUTO) 1.4 10^3/uL (0.1-1.4); ABSOLUTE NEUT (AUTO) 11.1 10^3/uL (1.7-8.2); BASOPHILS % (AUTO) 0.1 % (0-2); EOSINOPHILS % (AUTO) 0.1 % (0-6); HEMATOCRIT 46.8 % (37.9-51.0); HEMOGLOBIN 15.6 g/dL (13.5-17.0); LYMPHOCYTES % (AUTO) 6.4 % (13-45); MEAN CORPUSCULAR HEMOGLOBIN 31.8 pg (27.0-33.4); MEAN CORPUSCULAR HGB CONC 33.3 g/dL (32.0-36.0); MEAN CORPUSCULAR VOLUME 95 fl (80-97); MONOCYTES % (AUTO) 10.5 % (3-13); RED BLOOD COUNT 4.91 10^6/uL (4.35-5.55); SEGMENTED NEUTROPHILS % (AUTO) 82.9 % (42-78); WHITE BLOOD COUNT 13.3 10^3/uL (4.0-10.5)
--- NOTE | 2016-07-20 08:22 | EKG REPORT ---
SEVERITY:- ABNORMAL ECG - SINUS RHYTHM ATRIAL PREMATURE COMPLEX LEFT AXIS DEVIATION CONSIDER ANTERIOR INFARCT NONSPECIFIC T ABNORMALITIES, ANT-LAT LEADS : Confirmed by: Theodore Coffman MD 20-Jul-2016 08:21:41
--- NOTE | 2016-07-20 09:38 | PDOC PROGRESS REPORT ---
Subjective Progress Note for:: 07/20/16 Subjective:: The patient is currently seen on rounds. The patient is quite groggy but was able to awaken and answer simple questions. The patient stated that he wanted to natural . The patient had significant episodes of vomiting as well as bradycardia associated with this overnight. No reported episodes of diarrhea in spite of lactulose administration. Physical Exam Vital Signs: Temp Pulse Resp BP Pulse Ox 98.2 F 96 18 109/78 94 07/20/16 08:00 07/20/16 08:00 07/20/16 08:00 07/20/16 08:00 07/20/16 08:00 Intake & Output 07/18/16 07/19/16 07/20/16 23:59 23:59 23:59 Intake Total 691 890 0 Balance 691 890 0 Weight 119.7 kg 119.7 kg 116.7 kg General appearance: PRESENT: cooperative, disheveled Head exam: PRESENT: atraumatic, normocephalic Eye exam: PRESENT: conjunctiva pale, EOMI, PERRLA, scleral icterus Ear exam: PRESENT: normal external ear exam Mouth exam: PRESENT: moist, tongue midline Neck exam: ABSENT: carotid bruit, JVD, lymphadenopathy, thyromegaly Respiratory exam: PRESENT: decreased breath sounds, symmetrical, unlabored. ABSENT: rales, rhonchi, tachypnea, wheezes Cardiovascular exam: PRESENT: irregular rhythm. ABSENT: diastolic murmur, rubs , systolic murmur Pulses: PRESENT: +1 pedal pulses bilateral Vascular exam: PRESENT: pallor GI/Abdominal exam: PRESENT: ascites, distended, firm, normal bowel sounds, tenderness. ABSENT: guarding, mass, organolmegaly, rebound, rigid Rectal exam: PRESENT: deferred Extremities exam: PRESENT: pedal edema, +1 edema. ABSENT: calf tenderness, clubbing Neurological exam: PRESENT: altered - Groggy and delayed, awake, oriented to person, oriented to place, oriented to time, oriented to situation, CN II-XII grossly intact. ABSENT: motor sensory deficit Psychiatric exam: PRESENT: flat affect, unusual affect. ABSENT: homicidal ideation, suicidal ideation Skin exam: PRESENT: dry, intact, jaundice, warm. ABSENT: cyanosis, rash Results Laboratory Results: 07/20/16 06:41 07/19/16 07:57 07/20/16 06:41 WBC 13.3 H RBC 4.91 Hgb 15.6 Hct 46.8 MCV 95 MCH 31.8 MCHC 33.3 RDW 15.0 H Plt Count 157 Seg Neutrophils % 82.9 H Lymphocytes % 6.4 L Monocytes % 10.5 Eosinophils % 0.1 Basophils % 0.1 Absolute Neutrophils 11.1 H Absolute Lymphocytes 0.9 Absolute Monocytes 1.4 Absolute Eosinophils 0.0 Absolute Basophils 0.0 Impressions: Chest X-Ray 07/17/16 22:40 IMPRESSION: NO ACUTE RADIOGRAPHIC FINDING IN THE CHEST. Pelvis X-Ray 07/17/16 22:40 IMPRESSION: NO ACUTE OSSEOUS ABNORMALITY. DEGENERATIVE CHANGE ABOVE. Paracentesis Ultrasound 07/18/16 00:00 IMPRESSION: Successful ultrasound-guided diagnostic and therapeutic paracentesis Limited or Localized CT 07/18/16 02:48 IMPRESSION: PUNCTATE NONOBSTRUCTING LEFT RENAL CALCULUS WITHOUT LOWER URINARY TRACT STONES OR HYDRONEPHROSIS. STABLE DEGREE OF LARGE VOLUME ASCITES IN THE SETTING OF CIRRHOSIS. DIVERTICULOSIS WITHOUT EVIDENCE OF DIVERTICULITIS. Assessment & Plan - Diagnosis (1) End stage liver disease Is this a current diagnosis for this admission?: YesPlan: The patient's ammonia had normalized. Repeat in the a.m. Will give lactulose enema this a.m. given that the patient's nausea and vomiting. Will consult palliative management. (2) Hepatic encephalopathy Is this a current diagnosis for this admission?: YesPlan: Secondary to #1. (3) Urinary tract infection Qualifiers: Urinary tract infection type: site unspecified Hematuria presence: without hematuria Qualified Code(s): N39.0 - Urinary tract infection, site not specified Is this a current diagnosis for this admission?: YesPlan: Currently awaiting urine culture. There appears to be 2 organisms here. Will expand coverage to Zosyn and await finalization. The patient is unable to take by mouth for now. (4) Alcohol abuse Is this a current diagnosis for this admission?: YesPlan: The patient does not have a current dependency as it appears the patient has not drank since February 2016. Will substitute B vitamins. (5) Enterococcus faecalis infection Is this a current diagnosis for this admission?: No (6) Hypertensive urgency Is this a current diagnosis for this admission?: YesPlan: Improved. Will decrease beta susie. (7) Hypoalbuminemia Is this a current diagnosis for this admission?: Yes (8) DVT prophylaxis Is this a current diagnosis for this admission?: YesPlan: Will continue subcutaneous heparin - Time Time Spent with patient: 25-34 minutes Medications reviewed and adjusted accordingly: Yes
[2016-07-20] MEDS ORDERED: LEVOFLOXACIN 750 MG TABLET PO SCH (10:00)
[2016-07-20] MEDS: LACTULOSE SYRUP 20 GM/30 ML UDCUP PO SCH ×3 (11:26→18:16)
[2016-07-20] MEDS: DOCUSATE SODIUM 100 MG CAPSULE PO SCH ×2 (11:28→18:17)
[2016-07-20] MEDS: FOLIC ACID 1 MG TABLET PO SCH (11:29)
[2016-07-20] MEDS: FUROSEMIDE 40 MG TABLET PO SCH (11:29)
[2016-07-20] MEDS: RIFAXIMIN 550 MG TABLET PO SCH ×2 (11:30→18:16)
[2016-07-20] MEDS: THIAMINE HCL 100 MG TABLET PO SCH (11:30)
[2016-07-20] MEDS ORDERED: METOPROLOL TARTRATE 50 MG TABLET PO ONE (12:00)
[2016-07-20] MEDS ORDERED: LACTULOSE SYRUP 20 GM/30 ML UDCUP PR ONE (12:00)
[2016-07-20] MEDS ORDERED: SPIRONOLACTONE 25 MG TABLET PO ONE (12:00)
[2016-07-20] MEDS: PIPERACILLIN SODIUM/TAZOBACTAM 4.5 GM in NORMAL SALINE 100 ML IV SCH ×2 (12:40→18:17)
--- NOTE | 2016-07-20 13:03 | Physician Advisory Note ---
Physician Advisor ProgressNote .: Pursuant to the plan for [facility], I have reviewed the medical record for this patient. Physician Advisor Statement: Possible documentation opportunities if attending agrees: 1. "Principal dx" - H&P lists "E. faecalis infxn", PN 07/19 lists "hepatic encephalopathy", PN 07/20 lists "end stage liver dz" - please clarify which is the Principal Dx requiring adm. - Also, E. faecalis appears to be cause of UTI 1 mo ago, but not appearing to be present in current cx.s. Please clarify. 2. Please document the dx requiring paracentesis this adm - ?abd pain? bacterial infxn of unclear etiology? ... 3. "mild hyponatremia, likely due to " 4. Please give supporting info for dx of Hypertensive urgency, since BP's in VS section aren't > 180 systolic or <120 diastolic. 5. ? - "SIRS, developing 07/20, likely due to " [or do you think he's developing "possible sepsis, due to ___"?] As always, if concerned about any unstable VS or abnormal labs, please comment on them & note what doing about them, & please document each day the potential clinical problems you are concerned could occur if pt not kept in hospital for tx at this time. Thanks for your help with documentation accuracy/specificity improvement! Marycarmen Taylor MD [facility] Physician Advisor, Fellow of Hospital Medicine
[2016-07-20] MEDS ORDERED: METOPROLOL TARTRATE 50 MG TABLET PO SCH (22:00)
[2016-07-20] MEDS: METOPROLOL TARTRATE 25 MG TABLET PO SCH (22:48)
[2016-07-21] MEDS: PIPERACILLIN SODIUM/TAZOBACTAM 4.5 GM in NORMAL SALINE 100 ML IV SCH ×2 (00:56→05:08)
[2016-07-21] MEDS: PROMETHAZINE HCL INJ 25 MG/1 ML VIAL IV PRN (03:24)
[2016-07-21 07:48] LABS: HEMATOCRIT 42.6 % (37.9-51.0); HEMOGLOBIN 14.1 g/dL (13.5-17.0); HGB HCT DIFFERENCE -0.3; MEAN CORPUSCULAR HEMOGLOBIN 31.7 pg (27.0-33.4); MEAN CORPUSCULAR HGB CONC 33.1 g/dL (32.0-36.0); MEAN CORPUSCULAR VOLUME 96 fl (80-97); RED BLOOD COUNT 4.46 10^6/uL (4.35-5.55); RED CELL DISTRIBUTION WIDTH 14.9 % (11.5-14.0); WHITE BLOOD COUNT 26.1 10^3/uL (4.0-10.5)
[2016-07-21 08:09] LABS: ANION GAP 9 (5-19); BLOOD UREA NITROGEN 48 mg/dL (7-20); CALCIUM 9.4 mg/dL (8.4-10.2); CARBON DIOXIDE 26 mmol/L (22-30); CHLORIDE 99 mmol/L (98-107); CREATININE RESULT 3.02 mg/dL (0.52-1.25); GLUCOSE 103 mg/dL (75-110); MAGNESIUM 1.6 mg/dL (1.6-2.3)
[2016-07-21 08:22] LABS: BASOPHILS % (MANUAL) 0 % (0-2); EOSINOPHILS % (MANUAL) 0 % (0-6); LYMPHOCYTES % (MANUAL) 4 % (13-45); RBC MORPHOLOGY COMMENT NORMO-CYTIC/CHROMIC; TOTAL CELLS COUNTED 100; TOXIC GRANULATION 2+; TOXIC VACUOLATION PRESENT
--- NOTE | 2016-07-21 09:37 | PDOC PROGRESS REPORT ---
Subjective Progress Note for:: 07/21/16 Subjective:: The patient is currently seen on rounds. The patient is able to awaken and answer simple questions. It appears the patient's vomiting has resolved. The patient states that he does feel better today. Ears the patient's been having some incontinent bowel movements. The patient denies flank pain. Blood pressures have been in a decent range. Physical Exam Vital Signs: Temp Pulse Resp BP Pulse Ox 97.4 F 93 16 117/70 98 07/21/16 07:57 07/21/16 07:57 07/21/16 07:57 07/21/16 07:57 07/21/16 08:42 Intake & Output 07/19/16 07/20/16 07/21/16 23:59 23:59 23:59 Intake Total 890 430 500 Balance 890 430 500 Weight 119.7 kg 116.7 kg 119.6 kg General appearance: PRESENT: cooperative, disheveled Head exam: PRESENT: atraumatic, normocephalic Eye exam: PRESENT: conjunctiva pale, EOMI, PERRLA, scleral icterus Ear exam: PRESENT: normal external ear exam Mouth exam: PRESENT: moist, tongue midline Neck exam: ABSENT: carotid bruit, JVD, lymphadenopathy, thyromegaly Respiratory exam: PRESENT: decreased breath sounds, symmetrical, unlabored. ABSENT: rales, rhonchi, tachypnea, wheezes Cardiovascular exam: PRESENT: irregular rhythm. ABSENT: diastolic murmur, rubs , systolic murmur Pulses: PRESENT: +1 pedal pulses bilateral Vascular exam: PRESENT: pallor GI/Abdominal exam: PRESENT: ascites, distended, firm, normal bowel sounds, tenderness. ABSENT: guarding, mass, organolmegaly, rebound, rigid Rectal exam: PRESENT: deferred Extremities exam: PRESENT: pedal edema, +1 edema. ABSENT: calf tenderness, clubbing Neurological exam: PRESENT: altered - Groggy and delayed, awake, oriented to person, oriented to place, oriented to time, oriented to situation, CN II-XII grossly intact. ABSENT: motor sensory deficit Psychiatric exam: PRESENT: flat affect, unusual affect. ABSENT: homicidal ideation, suicidal ideation Skin exam: PRESENT: dry, intact, jaundice, warm. ABSENT: cyanosis, rash Results Laboratory Results: 07/21/16 07:26 07/21/16 07:26 07/21/16 07/21/16 07/21/16 07:26 07:26 07:26 WBC 26.1 H RBC 4.46 Hgb 14.1 Hct 42.6 MCV 96 MCH 31.7 MCHC 33.1 RDW 14.9 H Plt Count 127 L Seg Neutrophils % Not Reportable Lymphocytes % Not Reportable Monocytes % Not Reportable Eosinophils % Not Reportable Basophils % Not Reportable Absolute Neutrophils Not Reportable Absolute Lymphocytes Not Reportable Absolute Monocytes Not Reportable Absolute Eosinophils Not Reportable Absolute Basophils Not Reportable Sodium 134.0 L Potassium 4.0 Chloride 99 Carbon Dioxide 26 Anion Gap 9 BUN 48 H Creatinine 3.02 H Est GFR ( Amer) 25 L Est GFR (Non-Af Amer) 21 L Glucose 103 Calcium 9.4 Magnesium 1.6 Ammonia < 8.7 L Impressions: Chest X-Ray 07/17/16 22:40 IMPRESSION: NO ACUTE RADIOGRAPHIC FINDING IN THE CHEST. Pelvis X-Ray 07/17/16 22:40 IMPRESSION: NO ACUTE OSSEOUS ABNORMALITY. DEGENERATIVE CHANGE ABOVE. Paracentesis Ultrasound 07/18/16 00:00 IMPRESSION: Successful ultrasound-guided diagnostic and therapeutic paracentesis Limited or Localized CT 07/18/16 02:48 IMPRESSION: PUNCTATE NONOBSTRUCTING LEFT RENAL CALCULUS WITHOUT LOWER URINARY TRACT STONES OR HYDRONEPHROSIS. STABLE DEGREE OF LARGE VOLUME ASCITES IN THE SETTING OF CIRRHOSIS. DIVERTICULOSIS WITHOUT EVIDENCE OF DIVERTICULITIS. Assessment & Plan - Diagnosis (1) Acute renal failure Qualifiers: Acute renal failure type: unspecified Qualified Code(s): N17.9 - Acute kidney failure, unspecified Is this a current diagnosis for this admission?: YesPlan: This could be multifocal differentials do include hepatorenal syndrome, obstructive uropathy given stones, or prerenal azotemia. Will obtain urinalysis and stat renal ultrasound. The patient could possibly be intravascularly volume depleted therefore will gently hydrate however given the patient's hypoalbuminemia most likely his, third spaced from this. (2) End stage liver disease Is this a current diagnosis for this admission?: YesPlan: The patient's ammonia had normalized. Will continue lactulose as well as Xifaxan. Will consult palliative management. (3) Hepatic encephalopathy Is this a current diagnosis for this admission?: YesPlan: Secondary to #2. Improved with ammonia (4) Urinary tract infection Qualifiers: Urinary tract infection type: site unspecified Hematuria presence: without hematuria Qualified Code(s): N39.0 - Urinary tract infection, site not specified Is this a current diagnosis for this admission?: YesPlan: Currently awaiting urine culture. There appears to be 2 organisms here. Will expand coverage to Zosyn and await finalization. Will repeat urine culture (5) Alcohol abuse Is this a current diagnosis for this admission?: YesPlan: The patient does not have a current dependency as it appears the patient has not drank since February 2016. Will substitute B vitamins. (6) Enterococcus faecalis infection Is this a current diagnosis for this admission?: No (7) Hypertensive urgency Is this a current diagnosis for this admission?: YesPlan: Improved. Will decrease beta susie. (8) Hypoalbuminemia Is this a current diagnosis for this admission?: Yes (9) DVT prophylaxis Is this a current diagnosis for this admission?: YesPlan: Will continue subcutaneous heparin - Time Time Spent with patient: 35 or more minutes Medications reviewed and adjusted accordingly: Yes Disposition: The patient is a DO NOT RESUSCITATE DO NOT INTUBATE. Pending patient's symptomatology and diagnostic findings will reevaluate as needed.
[2016-07-21] MEDS: METOPROLOL TARTRATE 25 MG TABLET PO SCH ×2 (11:33→22:10)
[2016-07-21] MEDS: LACTULOSE SYRUP 20 GM/30 ML UDCUP PO SCH ×3 (11:34→18:21)
[2016-07-21] MEDS: THIAMINE HCL 100 MG TABLET PO SCH (11:35)
[2016-07-21] MEDS: FOLIC ACID 1 MG TABLET PO SCH (11:35)
[2016-07-21] MEDS: HEPARIN SOD (PORCINE) 5,000 UNIT/ML 1 ML SYRINGE SUBCUT SCH ×2 (11:35→22:11)
[2016-07-21] MEDS: RIFAXIMIN 550 MG TABLET PO SCH ×2 (11:35→18:21)
[2016-07-21] MEDS: DOCUSATE SODIUM 100 MG CAPSULE PO SCH ×2 (11:36→18:20)
[2016-07-21] MEDS: PIPERACILLIN SODIUM/TAZOBACTAM 2.25 GM in NORMAL SALINE 50 ML IV SCH ×3 (11:51→23:13)
--- NOTE | 2016-07-21 15:34 | Palliative Consultation Report ---
Consultation From:: LUDMILA BANERJEE Consult Reason: Symptom control, nausea/vomiting - HPI HPI: Appreciate consult for this 70 year old male who has been admitted due to symptoms related to ESLD. On admission ammonia was elevated, but other labs were stable. In the last few days, he has resolved his symptoms of encephalopathy as his ammonia levels decreased, but his nausea and vomiting has increased and his renal labs have changed dramatically. He has tight abdomen with ascites and bruising noted on extremities. He is alert but says he feels terrible. He vomited once and coughed up thick mucus repeatedly, having to use Katy suction to remove it from his pharyngeal area. He is too weak and distended to sit up to expectorate. Mr. Dunn says he feels like he is dying. I asked if there is anyone he needs to talk to in case he doesnt get better, but he said no. He is DNR. He lives alone with only neighbors stopping by to help him. Onset: Last week Onset/Duration: Gradual Quality of Pain: Achy Severity: Moderate Pain Level: 2 Associated Symptoms: Nausea, Vomiting, Shortness of breath, Sore throat, Weakness Exacerbated by: Food Relieved by: Remaining still Past Medical History(Consults) - General Information Source: Patient, [facility] Records Home Medications: No Home Medications 07/18/16 Allergies/Adverse Reactions: No Known Allergies Allergy (Verified 07/07/16 20:32) - Social History Lives with: Alone Family History: CAD - Mother age 76 of [place], alcohol and tobacco abuse Father age 66 of ulcer, alcohol and tobacco abuse Parental Family History Reviewed: No Children Family History Reviewed: No Sibling(s) Family History Reviewed.: No Smoking Status: Unknown if Ever Smoked Frequency of Alcohol Use: Heavy Hx Recreational Drug Use: No Hx Prescription Drug Abuse: No - Past Medical History Cardiac Medical History: Reports: Hx Hypertension Pulmonary Medical History: Reports: Hx COPD Renal/ Medical History: Denies: Hx Peritoneal Dialysis GI Medical History: Reports: Hx Cirrhosis Musculoskeltal Medical History: Reports Hx Gout Traumatic Medical History: Reports: None Infectious Medical History: Reports: None - Surgical History Past Surgical History: Reports: Hx Abdominal Surgery - "mesh", Hx Herniorrhaphy - Meds for umbilical hernia, Hx Orthopedic Surgery - R rotator cuff surgery Review of systems Constitutional: Chills, Malaise, Weakness EENT: Throat pain Cardiovascular: No symptoms reported Respiratory: Short of breath, Wheezing Gastrointestinal: Abdomen distended, Poor appetite Geniturinary: No symptoms reported Neurological/Psychological: Confusion, Anxiety Ojective:Exam Vital Signs: Temp Pulse Resp BP Pulse Ox 97.4 F 93 16 117/70 98 07/21/16 07:57 07/21/16 07:57 07/21/16 07:57 07/21/16 07:57 07/21/16 08:42 Intake & Output 07/20/16 07/21/16 07/22/16 06:59 06:59 06:59 Intake Total 570 930 Balance 570 930 Weight 116.7 kg 119.6 kg - General General Appearance: Anxious In distress: Mild Note:: Awake with sudden onset vomiting and choking just as I got to his room. After self suctioning he was able to take a few sips of iced tea and I cleaned his mouth with toothette. He is alert and says he is not really having pain, just pressure and nausea. Abd very tight and full with ascites, no BS. 1+ edema in lower extremities, bruising noted on upper and lower extremities. Patient very weak and anxious. - Respiratory Chest Status: Pain with cough Breath sounds: Rhonchi, Wheezing - Cardiovascular Rhythm: Regular - Abdominal Distension: Distended Bowel Sounds: Absent Tenderness: Nontender - Extremities Upper extremity: Nontender Lower extremities: Edema - Bruising noted on all extremities Objective-Diagnostic Laboratory: 07/21/16 07:26 07/21/16 07:26 07/21/16 07/21/16 07/21/16 07:26 07:26 07:26 WBC 26.1 H RBC 4.46 Hgb 14.1 Hct 42.6 MCV 96 MCH 31.7 MCHC 33.1 RDW 14.9 H Plt Count 127 L Seg Neutrophils % Not Reportable Lymphocytes % Not Reportable Monocytes % Not Reportable Eosinophils % Not Reportable Basophils % Not Reportable Absolute Neutrophils Not Reportable Absolute Lymphocytes Not Reportable Absolute Monocytes Not Reportable Absolute Eosinophils Not Reportable Absolute Basophils Not Reportable Sodium 134.0 L Potassium 4.0 Chloride 99 Carbon Dioxide 26 Anion Gap 9 BUN 48 H Creatinine 3.02 H Est GFR ( Amer) 25 L Est GFR (Non-Af Amer) 21 L Glucose 103 Calcium 9.4 Magnesium 1.6 Ammonia < 8.7 L Plan and Recommendation Plan and Recommendation: Patients labs show huge decline renal and increase in WBC's in last 2 days. Patient continues iwth ascites, nausea, vomiting and pressure pain in abd. He is awake and alert and states she feels like he is dying. He lives alone and says he only has neighbors to care for him. At present he is eligible for hospice services with his current labs, possible hepato-renal syndrome, ascites and symptoms. However, unless he improves greatly, he will not be able to live alone. He may be appropriate for hospice care center in the next few days of decline continues. At present he is having frequent nausea and vomiting. I would recommend low dose Haldol 0.5 mg q 4 hours sub q to control nausea, lorazapam to control anxiety and nausea. Paracentesis may help his symptoms by relieving pressure. I told patient he is still getting IV antibioics and do not know if they will change but certainly his doctors are watching his infection and treating it. Appreciate consult request and I will follow in next few days. Hospice liason notified of possible hospice care in near future. - Time Spent with Patient Time spent with patient: 40 to 60 Minutes Time: 35 min with patient, 30 min documentation and review
[2016-07-22] MEDS: ACETAMINOPHEN 325 MG TABLET PO PRN ×2 (02:54→19:32)
[2016-07-22] MEDS: NORMAL SALINE 1000 ML 1,000 ML IV PRN ×3 (05:41→22:00)
[2016-07-22] MEDS: PIPERACILLIN SODIUM/TAZOBACTAM 2.25 GM in NORMAL SALINE 50 ML IV SCH ×4 (05:41→23:14)
[2016-07-22 07:15] LABS: HEMATOCRIT 40.1 % (37.9-51.0); HEMOGLOBIN 13.3 g/dL (13.5-17.0); HGB HCT DIFFERENCE -0.2; MEAN CORPUSCULAR HEMOGLOBIN 31.8 pg (27.0-33.4); MEAN CORPUSCULAR HGB CONC 33.2 g/dL (32.0-36.0); MEAN CORPUSCULAR VOLUME 96 fl (80-97); RED BLOOD COUNT 4.19 10^6/uL (4.35-5.55); RED CELL DISTRIBUTION WIDTH 15.2 % (11.5-14.0); WHITE BLOOD COUNT 19.9 10^3/uL (4.0-10.5)
[2016-07-22 07:37] LABS: ANION GAP 9 (5-19); BLOOD UREA NITROGEN 54 mg/dL (7-20); CALCIUM 8.8 mg/dL (8.4-10.2); CARBON DIOXIDE 27 mmol/L (22-30); CHLORIDE 99 mmol/L (98-107); CREATININE RESULT 3.38 mg/dL (0.52-1.25); GLUCOSE 96 mg/dL (75-110); MAGNESIUM 1.6 mg/dL (1.6-2.3); POTASSIUM 3.5 mmol/L (3.6-5.0); SODIUM 135.2 mmol/L (137-145)
[2016-07-22] MEDS: FOLIC ACID 1 MG TABLET PO SCH (10:01)
[2016-07-22] MEDS: THIAMINE HCL 100 MG TABLET PO SCH (10:01)
[2016-07-22] MEDS: RIFAXIMIN 550 MG TABLET PO SCH ×2 (10:02→17:47)
[2016-07-22] MEDS: DOCUSATE SODIUM 100 MG CAPSULE PO SCH ×2 (10:02→17:46)
[2016-07-22] MEDS: METOPROLOL TARTRATE 25 MG TABLET PO SCH ×2 (10:02→22:00)
[2016-07-22] MEDS: LACTULOSE SYRUP 20 GM/30 ML UDCUP PO SCH ×3 (10:03→17:46)
[2016-07-22] MEDS: HEPARIN SOD (PORCINE) 5,000 UNIT/ML 1 ML SYRINGE SUBCUT SCH ×2 (11:55→22:01)
[2016-07-22] MEDS ORDERED: LORAZEPAM INJ 2 MG/1 ML VIAL IV PRN (14:44)
--- NOTE | 2016-07-22 14:54 | PDOC PROGRESS REPORT ---
Subjective Progress Note for:: 07/22/16 Subjective:: The patient is currently seen on rounds. The patient is able to awaken and answer simple questions. It appears the patient's vomiting has resolved. The patient states that he feels terrible today. It appears the patient has been having some urine in his diaper but unable to measure exact output. An out catheter was unsuccessful yesterday per nursing however renal ultrasound revealed a empty bladder. In discussion with the hospice provider it appears the patient will have a bed available at the care center on Sunday. The patient denies flank pain. Blood pressures have been in a decent range. Physical Exam Vital Signs: Temp Pulse Resp BP Pulse Ox 97.2 F 79 22 H 117/52 L 99 07/22/16 12:33 07/22/16 12:33 07/22/16 12:33 07/22/16 12:33 07/22/16 12:33 Intake & Output 07/20/16 07/21/16 07/22/16 23:59 23:59 23:59 Intake Total 430 1037 550 Balance 430 1037 550 Weight 116.7 kg 122.3 kg General appearance: PRESENT: cooperative, disheveled Head exam: PRESENT: atraumatic, normocephalic Eye exam: PRESENT: conjunctiva pale, EOMI, PERRLA, scleral icterus Ear exam: PRESENT: normal external ear exam Mouth exam: PRESENT: moist, tongue midline Neck exam: ABSENT: carotid bruit, JVD, lymphadenopathy, thyromegaly Respiratory exam: PRESENT: decreased breath sounds, symmetrical, unlabored. ABSENT: rales, rhonchi, tachypnea, wheezes Cardiovascular exam: PRESENT: irregular rhythm. ABSENT: diastolic murmur, rubs , systolic murmur Pulses: PRESENT: +1 pedal pulses bilateral Vascular exam: PRESENT: pallor GI/Abdominal exam: PRESENT: ascites, distended, firm, normal bowel sounds, tenderness. ABSENT: guarding, mass, organolmegaly, rebound, rigid Rectal exam: PRESENT: deferred Extremities exam: PRESENT: pedal edema, +1 edema. ABSENT: calf tenderness, clubbing Neurological exam: PRESENT: altered - Groggy and delayed, awake, oriented to person, oriented to place, oriented to time, oriented to situation, CN II-XII grossly intact. ABSENT: motor sensory deficit Psychiatric exam: PRESENT: flat affect, unusual affect. ABSENT: homicidal ideation, suicidal ideation Skin exam: PRESENT: dry, intact, jaundice, warm. ABSENT: cyanosis, rash Results Laboratory Results: 07/22/16 06:53 07/22/16 06:53 07/22/16 07/22/16 06:53 06:53 WBC 19.9 H RBC 4.19 L Hgb 13.3 L Hct 40.1 MCV 96 MCH 31.8 MCHC 33.2 RDW 15.2 H Plt Count 107 L Sodium 135.2 L Potassium 3.5 L Chloride 99 Carbon Dioxide 27 Anion Gap 9 BUN 54 H Creatinine 3.38 H Est GFR ( Amer) 22 L Est GFR (Non-Af Amer) 18 L Glucose 96 Calcium 8.8 Magnesium 1.6 07/18/16 11:45 Abdominal Fluid Gram Stain - Final 07/18/16 11:45 Abdominal Fluid Body Fluid Culture - Final NO AEROBIC OR ANAEROBIC ORGANISMS RECOVERED Impressions: Chest X-Ray 07/17/16 22:40 IMPRESSION: NO ACUTE RADIOGRAPHIC FINDING IN THE CHEST. Pelvis X-Ray 07/17/16 22:40 IMPRESSION: NO ACUTE OSSEOUS ABNORMALITY. DEGENERATIVE CHANGE ABOVE. Paracentesis Ultrasound 07/18/16 00:00 IMPRESSION: Successful ultrasound-guided diagnostic and therapeutic paracentesis Limited or Localized CT 07/18/16 02:48 IMPRESSION: PUNCTATE NONOBSTRUCTING LEFT RENAL CALCULUS WITHOUT LOWER URINARY TRACT STONES OR HYDRONEPHROSIS. STABLE DEGREE OF LARGE VOLUME ASCITES IN THE SETTING OF CIRRHOSIS. DIVERTICULOSIS WITHOUT EVIDENCE OF DIVERTICULITIS. Renal Ultrasound 07/21/16 00:00 IMPRESSION: No significant renal abnormalities were identified. Intra- abdominal and pelvic ascitic fluid is identified. Other findings as noted above Assessment & Plan - Diagnosis (1) Acute renal failure Qualifiers: Acute renal failure type: unspecified Qualified Code(s): N17.9 - Acute kidney failure, unspecified Is this a current diagnosis for this admission?: YesPlan: This could be multifocal differentials do include hepatorenal syndrome, obstructive uropathy given stones, or prerenal azotemia. The patient's creatinine did not improve with fluids the patient's renal ultrasound was not suggestive of an obstructive uropathy. Will obtain urinalysis and culture. The patient could possibly be intravascularly volume depleted therefore will gently hydrate however given the patient's hypoalbuminemia most likely his, third spaced from this. (2) End stage liver disease Is this a current diagnosis for this admission?: YesPlan: The patient's ammonia had normalized. Will continue lactulose as well as Xifaxan. Do appreciate palliative management. (3) Hepatic encephalopathy Is this a current diagnosis for this admission?: YesPlan: Secondary to #2. Improved with ammonia (4) Urinary tract infection Qualifiers: Urinary tract infection type: site unspecified Hematuria presence: without hematuria Qualified Code(s): N39.0 - Urinary tract infection, site not specified Is this a current diagnosis for this admission?: YesPlan: Currently awaiting urine culture. There appears to be 2 organisms here. Will expand coverage to Zosyn and await finalization. Will repeat urine culture (5) Alcohol abuse Is this a current diagnosis for this admission?: YesPlan: The patient does not have a current dependency as it appears the patient has not drank since February 2016. Will substitute B vitamins. (6) Enterococcus faecalis infection Is this a current diagnosis for this admission?: No (7) Hypertensive urgency Is this a current diagnosis for this admission?: YesPlan: Improved. Will decrease beta susie. (8) Hypoalbuminemia Is this a current diagnosis for this admission?: Yes (9) DVT prophylaxis Is this a current diagnosis for this admission?: Yes - Time Time Spent with patient: 25-34 minutes Medications reviewed and adjusted accordingly: Yes Anticipated discharge: Home, Hospice Within: when bed available
[2016-07-23] MEDS: PIPERACILLIN SODIUM/TAZOBACTAM 2.25 GM in NORMAL SALINE 50 ML IV SCH ×2 (06:01→11:49)
[2016-07-23] MEDS: NORMAL SALINE 1000 ML 1,000 ML IV PRN ×2 (06:01→21:37)
[2016-07-23] MEDS ORDERED: LORAZEPAM INJ 2 MG/1 ML VIAL IV ONE (09:15)
[2016-07-23] MEDS: RIFAXIMIN 550 MG TABLET PO SCH ×2 (10:57→17:49)
[2016-07-23] MEDS: FOLIC ACID 1 MG TABLET PO SCH (10:57)
[2016-07-23] MEDS: THIAMINE HCL 100 MG TABLET PO SCH (10:57)
[2016-07-23] MEDS: DOCUSATE SODIUM 100 MG CAPSULE PO SCH ×2 (10:57→17:49)
[2016-07-23] MEDS: LACTULOSE SYRUP 20 GM/30 ML UDCUP PO SCH ×3 (10:58→17:49)
[2016-07-23] MEDS: METOPROLOL TARTRATE 25 MG TABLET PO SCH ×2 (10:59→21:37)
[2016-07-23] MEDS: HEPARIN SOD (PORCINE) 5,000 UNIT/ML 1 ML SYRINGE SUBCUT SCH ×2 (11:03→22:08)
--- NOTE | 2016-07-23 13:28 | PDOC PROGRESS REPORT ---
Subjective Progress Note for:: 07/23/16 Subjective:: The patient is currently seen on rounds. The patient is able to awaken and answer simple questions. It appears the patient's vomiting has resolved. The patient states that he feels terrible today and "doesn't know how much longer he can go on". The patient has had numerous wet briefs and bladder scans are not consistent with significant retention. Renal ultrasound revealed a empty bladder. In discussion with the hospice provider it appears the patient will have a bed available at the care center on Sunday. The patient denies flank pain. Blood pressures have been in a decent range. Physical Exam Vital Signs: Temp Pulse Resp BP Pulse Ox 97.8 F 76 20 121/77 97 07/23/16 11:00 07/23/16 11:00 07/23/16 11:00 07/23/16 11:07/23/16 11:00 Intake & Output 07/21/16 07/22/16 07/23/16 23:59 23:59 23:59 Intake Total 1037 3070 1543 Balance 1037 3070 1543 Weight 122.3 kg 117.7 kg General appearance: PRESENT: cooperative, disheveled Head exam: PRESENT: atraumatic, normocephalic Eye exam: PRESENT: conjunctiva pale, EOMI, PERRLA, scleral icterus Ear exam: PRESENT: normal external ear exam Mouth exam: PRESENT: moist, tongue midline Neck exam: ABSENT: carotid bruit, JVD, lymphadenopathy, thyromegaly Respiratory exam: PRESENT: decreased breath sounds, symmetrical, unlabored. ABSENT: rales, rhonchi, tachypnea, wheezes Cardiovascular exam: PRESENT: irregular rhythm. ABSENT: diastolic murmur, rubs , systolic murmur Pulses: PRESENT: +1 pedal pulses bilateral Vascular exam: PRESENT: pallor GI/Abdominal exam: PRESENT: ascites, distended, firm, normal bowel sounds, tenderness. ABSENT: guarding, mass, organolmegaly, rebound, rigid Rectal exam: PRESENT: deferred Extremities exam: PRESENT: pedal edema, +1 edema. ABSENT: calf tenderness, clubbing Neurological exam: PRESENT: altered - Groggy and delayed, awake, oriented to person, oriented to place, oriented to time, oriented to situation, CN II-XII grossly intact. ABSENT: motor sensory deficit Psychiatric exam: PRESENT: flat affect, unusual affect. ABSENT: homicidal ideation, suicidal ideation Skin exam: PRESENT: dry, intact, jaundice, warm. ABSENT: cyanosis, rash Results Laboratory Results: 07/22/16 06:53 07/22/16 06:53 07/18/16 11:45 Abdominal Fluid Gram Stain - Final 07/18/16 11:45 Abdominal Fluid Body Fluid Culture - Final NO AEROBIC OR ANAEROBIC ORGANISMS RECOVERED Impressions: Chest X-Ray 07/17/16 22:40 IMPRESSION: NO ACUTE RADIOGRAPHIC FINDING IN THE CHEST. Pelvis X-Ray 07/17/16 22:40 IMPRESSION: NO ACUTE OSSEOUS ABNORMALITY. DEGENERATIVE CHANGE ABOVE. Paracentesis Ultrasound 07/18/16 00:00 IMPRESSION: Successful ultrasound-guided diagnostic and therapeutic paracentesis Limited or Localized CT 07/18/16 02:48 IMPRESSION: PUNCTATE NONOBSTRUCTING LEFT RENAL CALCULUS WITHOUT LOWER URINARY TRACT STONES OR HYDRONEPHROSIS. STABLE DEGREE OF LARGE VOLUME ASCITES IN THE SETTING OF CIRRHOSIS. DIVERTICULOSIS WITHOUT EVIDENCE OF DIVERTICULITIS. Renal Ultrasound 07/21/16 00:00 IMPRESSION: No significant renal abnormalities were identified. Intra- abdominal and pelvic ascitic fluid is identified. Other findings as noted above Assessment & Plan - Diagnosis (1) Acute renal failure Qualifiers: Acute renal failure type: unspecified Qualified Code(s): N17.9 - Acute kidney failure, unspecified Is this a current diagnosis for this admission?: YesPlan: This could be multifocal differentials do include hepatorenal syndrome. The patient's creatinine did not improve with fluids the patient's renal ultrasound was not suggestive of an obstructive uropathy. The patient could possibly be intravascularly volume depleted therefore will gently hydrate however given the patient's hypoalbuminemia most likely his, third spaced from this. (2) End stage liver disease Is this a current diagnosis for this admission?: YesPlan: The patient's ammonia had normalized. Will continue lactulose as well as Xifaxan. Do appreciate palliative management. (3) Hepatic encephalopathy Is this a current diagnosis for this admission?: YesPlan: Secondary to #2. Improved with ammonia (4) Urinary tract infection Qualifiers: Urinary tract infection type: site unspecified Hematuria presence: without hematuria Qualified Code(s): N39.0 - Urinary tract infection, site not specified Is this a current diagnosis for this admission?: YesPlan: Both organisms are sensitive to doxycycline. (5) Alcohol abuse Is this a current diagnosis for this admission?: YesPlan: The patient does not have a current dependency as it appears the patient has not drank since February 2016. Will substitute B vitamins. (6) Enterococcus faecalis infection Is this a current diagnosis for this admission?: Yes (7) Hypertensive urgency Is this a current diagnosis for this admission?: YesPlan: Improved. (8) Hypoalbuminemia Is this a current diagnosis for this admission?: Yes (9) DVT prophylaxis Is this a current diagnosis for this admission?: YesPlan: Will continue subcutaneous heparin - Time Time Spent with patient: 25-34 minutes Medications reviewed and adjusted accordingly: Yes Anticipated discharge: Home, Hospice, Other Within: when bed available
[2016-07-23 20:02] LABS: AMORPHOUS SEDIMENT,URINE TRACE /HPF; APPEARANCE,URINE CLEAR; BILIRUBIN,URINE NEGATIVE (NEGATIVE); GLUCOSE, URINE NEGATIVE (NEGATIVE); KETONES,URINE NEGATIVE (NEGATIVE); LEUKOCYTE ESTERASE,URINE NEGATIVE (NEGATIVE); NITRITE,URINE NEGATIVE (NEGATIVE); PROTEIN,URINE NEGATIVE (NEGATIVE); UROBILINOGEN,URINE NEGATIVE mg/dL (<2.0)
[2016-07-23 20:06] LABS: URINE SPECIFIC GRAVITY 1.002
[2016-07-23] MEDS: DOXYCYCLINE HYCLATE 100 MG in DEXTROSE 5%-WATER 250 ML IV SCH (21:37)
[2016-07-24] MEDS: PROMETHAZINE HCL INJ 25 MG/1 ML VIAL IV PRN (02:31)
--- NOTE | 2016-07-24 10:30 | PDOC DISCHARGE SUMMARY ---
General - Admit/Disc Date/PCP Admission Date/Primary Care Provider: 07/18/16 06:28 Discharge Date: 07/24/16 - Discharge Diagnosis (1) Hepatorenal syndrome Is this a current diagnosis for this admission?: Yes (2) End stage liver disease Is this a current diagnosis for this admission?: Yes (3) Hepatic encephalopathy Is this a current diagnosis for this admission?: Yes (4) Urinary tract infection Is this a current diagnosis for this admission?: Yes (5) Enterococcus faecalis infection Is this a current diagnosis for this admission?: Yes (6) Hypertensive urgency Is this a current diagnosis for this admission?: Yes (7) Hypoalbuminemia Is this a current diagnosis for this admission?: Yes (8) Alcohol abuse Is this a current diagnosis for this admission?: Yes (9) DVT prophylaxis Is this a current diagnosis for this admission?: Yes - Additional Information Resuscitation Status: Do Not Resuscitate - DNR/DNI Discharge Diet: As Tolerated Discharge Activity: Activity As Tolerated Home Medications: Doxycycline Hyclate 100 mg PO Q12 #10 capsule 07/24/16 Folic Acid [Folvite 1 mg Tablet] 1 mg PO DAILY tablet 07/24/16 Lactulose [Cephulac Syrup 20 gm/30 ml Udcup] 20 gm PO TID udc 07/24/16 Metoprolol Tartrate [Lopressor 25 mg Tablet] 25 mg PO Q12 tablet 07/24/16 Spironolactone [Aldactone 25 mg Tablet] 12.5 mg PO Q12 tablet 07/24/16 Thiamine HCl [Thiamine 100 mg Tablet] 100 mg PO DAILY tablet 07/24/16 History of Present Illness Patient complains of: Altered mental status History of Present Illness: CARLITOS CALHOUN is a 70 year old male with a past medical history of 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 He was brought to the emergency room via EMS who found him disheveled, confused and covered in feces. Brought to the emergency room for evaluation and complains of diffuse pain, urinalysis reveals leukocyte esterase and greater than 100 WBCs, he started on empiric antibiotics and referred to the hospitalist for admission. His abdomen is soft nontender and A urine culture 1 month ago grew E faecalis. Hospital Course Hospital Course: The patient was admitted to continuous telemetry unit. Urine analysis and culture was obtained. The patient had findings suggestive of a urinary tract infection. Patient's urine culture revealed Escherichia coli and enterococcus which was sensitive to doxycycline and the patient received antibiotic coverage. The patient was noted to have significant ascites and the patient underwent paracentesis and removed 5 liters of fluid. Patient has had multiple paracentesis dating back to 2014. It appears the patient has had significant renal failure in the past and with the patient's low albumin most likely has a more elevated creatinine at baseline the lab values reflect. However during the patient's stay the patient' s creatinine trended up to a GFR of 18. The patient was not noted to have any obstructive uropathy is nor was the patient's creatinine improved with hydration. The patient was unable to tolerate diuretic therapy given his significant hypotension therefore doses have been significantly decreased. The patient has had intermittent nausea and vomiting which is improved with Ativan. The patient has been seen and evaluated by Cynthia Jane with palliative care who feels the patient is appropriate for hospice at the care facility. The patient is in agreement to this. Physical Exam Vital Signs: Temp Pulse Resp BP Pulse Ox 98.2 F 81 20 117/69 98 07/24/16 08:00 07/24/16 08:00 07/24/16 08:00 07/24/16 08:00 07/24/16 08:00 Intake & Output 07/22/16 07/23/16 07/24/16 23:59 23:59 23:59 Intake Total 3070 4048 1296 Balance 3070 4048 1296 Weight 117.7 kg 124 kg General appearance: PRESENT: cooperative, disheveled. ABSENT: well-nourished Head exam: PRESENT: atraumatic, normocephalic Eye exam: PRESENT: conjunctiva pale, PERRLA, scleral icterus Ear exam: PRESENT: normal external ear exam Mouth exam: PRESENT: moist, tongue midline Respiratory exam: PRESENT: decreased breath sounds, symmetrical, unlabored. ABSENT: rales, rhonchi, tachypnea, wheezes Cardiovascular exam: PRESENT: RRR. ABSENT: diastolic murmur, rubs, systolic murmur Pulses: PRESENT: +1 pedal pulses bilateral Vascular exam: PRESENT: pallor GI/Abdominal exam: PRESENT: ascites, firm, normal bowel sounds. ABSENT: distended, guarding, mass, organolmegaly, rebound, tenderness Rectal exam: PRESENT: deferred Extremities exam: PRESENT: pedal edema, +2 edema. ABSENT: calf tenderness, clubbing Neurological exam: PRESENT: alert, awake. ABSENT: motor sensory deficit, normal gait Psychiatric exam: PRESENT: depressed, flat affect. ABSENT: homicidal ideation, suicidal ideation Skin exam: PRESENT: jaundice, pallor Results Laboratory Results: Labs- Last Values WBC 19.9 10^3/uL (4.0-10.5) H 07/22/16 06:53 RBC 4.19 10^6/uL (4.35-5.55) L 07/22/16 06:53 Hgb 13.3 g/dL (13.5-17.0) L 07/22/16 06:53 Hct 40.1 % (37.9-51.0) 07/22/16 06:53 MCV 96 fl (80-97) 07/22/16 06:53 MCH 31.8 pg (27.0-33.4) 07/22/16 06:53 MCHC 33.2 g/dL (32.0-36.0) 07/22/16 06:53 RDW 15.2 % (11.5-14.0) H 07/22/16 06:53 Plt Count 107 10^3/uL (150-450) L 07/22/16 06:53 Total Counted 100 07/21/16 07:26 Seg Neutrophils % Not Reportable 07/21/16 07:26 Seg Neuts % (Manual) 90 % (42-78) H 07/21/16 07:26 Lymphocytes % Not Reportable 07/21/16 07:26 Lymphocytes % (Manual) 4 % (13-45) L 07/21/16 07:26 Monocytes % Not Reportable 07/21/16 07:26 Monocytes % (Manual) 4 % (3-13) 07/21/16 07:26 Eosinophils % Not Reportable 07/21/16 07:26 Eosinophils % (Manual) 0 % (0-6) 07/21/16 07:26 Basophils % Not Reportable 07/21/16 07:26 Basophils % (Manual) 0 % (0-2) 07/21/16 07:26 Metamyelocytes % 2 % (0) H 07/21/16 07:26 Absolute Neutrophils Not Reportable 07/21/16 07:26 Abs Neuts (Manual) 24.0 10^3/uL (1.7-8.2) H 07/21/16 07:26 Absolute Lymphocytes Not Reportable 07/21/16 07:26 Abs Lymphs (Manual) 1.0 10^3/uL (0.5-4.7) 07/21/16 07:26 Absolute Monocytes Not Reportable 07/21/16 07:26 Abs Monocytes (Manual) 1.0 10^3/uL (0.1-1.4) 07/21/16 07:26 Absolute Eosinophils Not Reportable 07/21/16 07:26 Absolute Eos (Manual) 0.0 10^3/uL (0.0-0.6) 07/21/16 07:26 Absolute Basophils Not Reportable 07/21/16 07:26 Abs Basophils (Manual) 0.0 10^3/uL (0.0-0.2) 07/21/16 07:26 Toxic Granulation 2+ 07/21/16 07:26 Toxic Vacuolation PRESENT 07/21/16 07:26 Platelet Estimate Cancelled 07/17/16 21:00 Platelet Comment ADEQUATE 07/21/16 07:26 RBC Morph Comment NORMO-CYTIC/CHROMIC 07/21/16 07:26 PT 17.6 SEC (11.4-15.4) H 07/17/16 21:00 INR 1.39 07/17/16 21:00 APTT 36.4 SEC (23.5-35.8) H 07/17/16 21:00 Sodium 135.2 mmol/L (137-145) L 07/22/16 06:53 Potassium 3.5 mmol/L (3.6-5.0) L 07/22/16 06:53 Chloride 99 mmol/L (98-107) 07/22/16 06:53 Carbon Dioxide 27 mmol/L (22-30) 07/22/16 06:53 Anion Gap 9 (5-19) 07/22/16 06:53 BUN 54 mg/dL (7-20) H 07/22/16 06:53 Creatinine 3.38 mg/dL (0.52-1.25) H 07/22/16 06:53 Est GFR ( Amer) 22 (>60) L 07/22/16 06:53 Est GFR (Non-Af Amer) 18 (>60) L 07/22/16 06:53 Glucose 96 mg/dL (75-110) 07/22/16 06:53 POC Glucose 83 mg/dL (70-110) 07/18/16 04:01 Calcium 8.8 mg/dL (8.4-10.2) 07/22/16 06:53 Magnesium 1.6 mg/dL (1.6-2.3) 07/22/16 06:53 Total Bilirubin 4.1 mg/dL (0.2-1.3) H 07/19/16 07:57 Direct Bilirubin 0.3 mg/dL (0.0-0.3) 07/19/16 07:57 AST 58 U/L (17-59) 07/19/16 07:57 ALT 45 U/L (21-72) 07/19/16 07:57 Alkaline Phosphatase 130 U/L (38-126) H 07/19/16 07:57 Ammonia < 8.7 umol/L (9-33) L 07/21/16 07:26 Creatine Kinase 108 U/L (55-170) 07/17/16 21:00 CK-MB (CK-2) 1.53 ng/mL (<4.55) 07/17/16 21:00 Troponin I 0.018 ng/mL 07/17/16 21:00 Total Protein 5.9 g/dL (6.3-8.2) L 07/19/16 07:57 Albumin 2.5 g/dL (3.5-5.0) L 07/19/16 07:57 Lipase 137.3 U/L (23-300) 07/17/16 21:00 Urine Color NEHEMIAS 07/23/16 19:27 Urine Appearance CLEAR 07/23/16 19:27 Urine pH 6.0 (5.0-9.0) 07/23/16 19:27 Ur Specific [place] 1.002 07/23/16 19:27 Urine Protein NEGATIVE mg/dL (NEGATIVE) 07/23/16 19:27 Urine Glucose (UA) NEGATIVE mg/dL (NEGATIVE) 07/23/16 19:27 Urine Ketones NEGATIVE mg/dL (NEGATIVE) 07/23/16 19:27 Urine Blood NEGATIVE (NEGATIVE) 07/23/16 19:27 Urine Nitrite NEGATIVE (NEGATIVE) 07/23/16 19:27 Urine Bilirubin NEGATIVE (NEGATIVE) 07/23/16 19:27 Urine Urobilinogen NEGATIVE mg/dL (<2.0) 07/23/16 19:27 Ur Leukocyte Esterase NEGATIVE (NEGATIVE) 07/23/16 19:27 Urine WBC (Auto) 1 /HPF 07/23/16 19:27 Urine RBC (Auto) 1 /HPF 07/23/16 19:27 U Hyaline Cast (Auto) 6 /LPF 07/17/16 22:55 Urine WBC Clumps MANY /HPF 07/17/16 22:55 Squamous Epi Cells Auto 20 /HPF 07/17/16 22:55 Amorphous Sediment Auto TRACE /HPF 07/23/16 19:27 Urine Mucus (Auto) MANY /LPF 07/17/16 22:55 Urine Ascorbic Acid NEGATIVE (NEGATIVE) 07/23/16 19:27 Urine Opiates Screen NEGATIVE 07/17/16 22:55 Urine Methadone Screen NEGATIVE 07/17/16 22:55 Ur Barbiturates Screen NEGATIVE 07/17/16 22:55 Ur Phencyclidine Scrn NEGATIVE 07/17/16 22:55 Ur Amphetamines Screen NEGATIVE 07/17/16 22:55 U Benzodiazepines Scrn NEGATIVE 07/17/16 22:55 Urine Cocaine Screen NEGATIVE 07/17/16 22:55 U Marijuana (THC) Screen NEGATIVE 07/17/16 22:55 Serum Alcohol < 10 mg/dL (NONE DETECTED) 07/17/16 21:00 Slides for Path Review Cancelled 07/17/16 21:00 07/23/16 19:27 Urine Culture - Preliminary Clean Catch Midstream NO GROWTH IN 1 DAY 07/18/16 16:00 Blood Culture - Final Blood NO GROWTH IN 5 DAYS 07/18/16 13:20 Blood Culture - Final Blood NO GROWTH IN 5 DAYS 07/18/16 11:45 Gram Stain - Final Abdominal Fluid Body Fluid Culture - Final NO AEROBIC OR ANAEROBIC ORGANISMS RECOVERED 07/17/16 22:55 Urine Culture - Final Clean Catch Midstream Escherichia Coli Enterococcus Faecium (Group D) 07/07/16 21:50 Gram Stain - Final Peritoneal Body Fluid Culture - Final NO AEROBIC OR ANAEROBIC ORGANISMS RECOVERED Impressions: Chest X-Ray 07/17/16 22:40 IMPRESSION: NO ACUTE RADIOGRAPHIC FINDING IN THE CHEST. Pelvis X-Ray 07/17/16 22:40 IMPRESSION: NO ACUTE OSSEOUS ABNORMALITY. DEGENERATIVE CHANGE ABOVE. Paracentesis Ultrasound 07/18/16 00:00 IMPRESSION: Successful ultrasound-guided diagnostic and therapeutic paracentesis Limited or Localized CT 07/18/16 02:48 IMPRESSION: PUNCTATE NONOBSTRUCTING LEFT RENAL CALCULUS WITHOUT LOWER URINARY TRACT STONES OR HYDRONEPHROSIS. STABLE DEGREE OF LARGE VOLUME ASCITES IN THE SETTING OF CIRRHOSIS. DIVERTICULOSIS WITHOUT EVIDENCE OF DIVERTICULITIS. Renal Ultrasound 07/21/16 00:00 IMPRESSION: No significant renal abnormalities were identified. Intra- abdominal and pelvic ascitic fluid is identified. Other findings as noted above Qualifiers PATEINT BEING DISCHARGED WITH ANY OF THE FOLLOWING DIAGNOSIS?: No Plan Discharge Plan: The patient can be discharged to hospice. Time Spent: Greater than 30 Minutes
[2016-07-24] MEDS: THIAMINE HCL 100 MG TABLET PO SCH (10:53)
[2016-07-24] MEDS: LACTULOSE SYRUP 20 GM/30 ML UDCUP PO SCH ×3 (10:53→17:34)
[2016-07-24] MEDS: METOPROLOL TARTRATE 25 MG TABLET PO SCH ×2 (10:53→21:57)
[2016-07-24] MEDS: RIFAXIMIN 550 MG TABLET PO SCH ×2 (10:53→17:34)
[2016-07-24] MEDS: FOLIC ACID 1 MG TABLET PO SCH (10:53)
[2016-07-24] MEDS: DOCUSATE SODIUM 100 MG CAPSULE PO SCH ×2 (10:53→17:31)
[2016-07-24] MEDS: HEPARIN SOD (PORCINE) 5,000 UNIT/ML 1 ML SYRINGE SUBCUT SCH (10:54)
[2016-07-24] MEDS: DOXYCYCLINE HYCLATE 100 MG in DEXTROSE 5%-WATER 250 ML IV SCH ×2 (11:05→21:57)
--- NOTE | 2016-07-24 12:41 | Progress Note ---
Provider Note Provider Note: Palliative Care follow up visit. Patient looks some better, but still is very ill. He reports no more vomiting but is still not eating. He says he is drinking some grape juice and it is staying down. He is more alert today and denying having any pain. IV antibiotics have been changed to doxycycline and WBC's have come down. Abdomen is still very full and firm. No shortness of breath noted at rest, but has conversational dyspnea. Productive cough which patient self suctions is still producing brownish sputum. Mr. Hall admits that he has no one to care for him at home and knows he is unable to live alone with his current condition. [facility], but patient states he doesn't want to go that far away. He is alert enough to make decisions and he would have to sign hospice consent himself. He may need to go to SNF after hospital discharge. Certainly, he is appropriate for hospice services at home or at [facility] or SNF if not admitted under Medicare days. Repeat Paracentesis may lessen his symptoms although it appears ascitic fluid will reaccumulate rapidly as it did last week. WIll be happy to follow and associate merchant liason will also follow to see if there are changes or if he agrees to go to [facility].
[2016-07-24 13:59] LABS: ANION GAP 10 (5-19); BLOOD UREA NITROGEN 60 mg/dL (7-20); CALCIUM 8.8 mg/dL (8.4-10.2); CARBON DIOXIDE 24 mmol/L (22-30); CHLORIDE 105 mmol/L (98-107); CREATININE RESULT 2.28 mg/dL (0.52-1.25); GLUCOSE 127 mg/dL (75-110); SODIUM 138.5 mmol/L (137-145)
[2016-07-24 14:08] LABS: POTASSIUM 3.1 mmol/L (3.6-5.0)
[2016-07-24] MEDS: FUROSEMIDE 40 MG TABLET PO SCH (14:24)
[2016-07-24] MEDS ORDERED: POTASSIUM CHLORIDE 10 MEQ TABLET.SA PO ONE (15:00)
[2016-07-24] MEDS ORDERED: POTASSIUM CHLORIDE 10 MEQ TABLET.SA PO SCH (18:00)
[2016-07-24] MEDS: POTASSIUM CHLORIDE 10 MEQ TABLET.SA PO SCH (21:57)
[2016-07-25] MEDS: HEPARIN SOD (PORCINE) 5,000 UNIT/ML 1 ML SYRINGE SUBCUT SCH ×2 (02:07→11:02)
[2016-07-25] MEDS: POTASSIUM CHLORIDE 10 MEQ TABLET.SA PO SCH (02:12)
[2016-07-25 06:07] LABS: ANION GAP 8 (5-19); BLOOD UREA NITROGEN 60 mg/dL (7-20); CALCIUM 8.5 mg/dL (8.4-10.2); CARBON DIOXIDE 24 mmol/L (22-30); CHLORIDE 106 mmol/L (98-107); CREATININE RESULT 2.03 mg/dL (0.52-1.25); GLUCOSE 111 mg/dL (75-110); MAGNESIUM 1.5 mg/dL (1.6-2.3); POTASSIUM 3.7 mmol/L (3.6-5.0); SODIUM 138.4 mmol/L (137-145)
[2016-07-25 06:26] LABS: HEMATOCRIT 40.1 % (37.9-51.0); HEMOGLOBIN 13.3 g/dL (13.5-17.0); HGB HCT DIFFERENCE -0.2; MEAN CORPUSCULAR HEMOGLOBIN 31.6 pg (27.0-33.4); MEAN CORPUSCULAR VOLUME 96 fl (80-97); RED CELL DISTRIBUTION WIDTH 15.7 % (11.5-14.0); WHITE BLOOD COUNT 14.8 10^3/uL (4.0-10.5)
[2016-07-25] MEDS: METOPROLOL TARTRATE 25 MG TABLET PO SCH (10:47)
[2016-07-25] MEDS: THIAMINE HCL 100 MG TABLET PO SCH (10:47)
[2016-07-25] MEDS: DOXYCYCLINE HYCLATE 100 MG in DEXTROSE 5%-WATER 250 ML IV SCH (10:48)
[2016-07-25] MEDS: DOCUSATE SODIUM 100 MG CAPSULE PO SCH ×2 (10:48→17:41)
[2016-07-25] MEDS: RIFAXIMIN 550 MG TABLET PO SCH (10:48)
[2016-07-25] MEDS: FOLIC ACID 1 MG TABLET PO SCH (10:48)
[2016-07-25] MEDS: LACTULOSE SYRUP 20 GM/30 ML UDCUP PO SCH ×3 (10:48→17:41)
--- NOTE | 2016-07-25 14:01 | PDOC PROGRESS REPORT ---
Subjective Progress Note for:: 07/25/16 Subjective:: Patient is a 70-year-old male, seen on morning rounds. He presently is resting comfortably in bed. He denies any shortness of breath, cough or dyspnea. He denies any chest pain, dizziness, or headache. He states he has some nausea, denies vomiting or abdominal pain. He underwent paracentesis again 3 days ago for removal of 5 liters of ascites. He is presently awaiting rehab placement bed with palliative care of [facility]. He states his abdominal pain did dissipate after that procedure. He continues to be somewhat lethargic. He denies any other complaints at the present time. Physical Exam Vital Signs: Temp Pulse Resp BP Pulse Ox 97.9 F 87 18 112/74 95 07/25/16 12:00 07/25/16 12:00 07/25/16 12:00 07/25/16 12:00 07/25/16 12:00 Intake & Output 07/24/16 07/25/16 07/26/16 06:59 06:59 06:59 Intake Total 3881 2019 300 Output Total 6 Balance 3881 2013 300 Weight 124 kg 123.9 kg General appearance: PRESENT: no acute distress, disheveled, obese, well- developed, well-nourished Head exam: PRESENT: atraumatic, normocephalic Eye exam: PRESENT: conjunctiva pink, EOMI, PERRLA. ABSENT: scleral icterus Ear exam: PRESENT: normal external ear exam Mouth exam: PRESENT: moist, tongue midline Neck exam: ABSENT: carotid bruit, JVD, lymphadenopathy, thyromegaly Respiratory exam: PRESENT: clear to auscultation farhad. ABSENT: rales, rhonchi, wheezes Cardiovascular exam: PRESENT: RRR. ABSENT: diastolic murmur, rubs, systolic murmur Pulses: PRESENT: normal dorsalis pedis pul Vascular exam: ABSENT: normal capillary refill, pallor, other GI/Abdominal exam: PRESENT: ascites, distended, hypoactive bowel sounds, soft, tenderness Rectal exam: PRESENT: deferred Extremities exam: PRESENT: full ROM. ABSENT: calf tenderness, clubbing, pedal edema Neurological exam: PRESENT: alert, awake, oriented to person, oriented to place , oriented to time, oriented to situation, CN II-XII grossly intact. ABSENT: motor sensory deficit Psychiatric exam: PRESENT: appropriate affect, normal mood. ABSENT: homicidal ideation, suicidal ideation Skin exam: PRESENT: dry, intact, warm. ABSENT: cyanosis, rash Results Laboratory Results: 07/25/16 05:28 07/25/16 05:28 07/24/16 07/25/16 07/25/16 13:33 05:28 05:28 WBC 14.8 H RBC 4.20 L Hgb 13.3 L Hct 40.1 MCV 96 MCH 31.6 MCHC 33.0 RDW 15.7 H Plt Count 96 L Sodium 138.5 138.4 Potassium 3.1 L 3.7 Chloride 105 106 Carbon Dioxide 24 24 Anion Gap 10 8 BUN 60 H 60 H Creatinine 2.28 H 2.03 H Est GFR ( Amer) 35 L 40 L Est GFR (Non-Af Amer) 29 L 33 L Glucose 127 H 111 H Calcium 8.8 8.5 Magnesium 1.5 L Ammonia 07/25/16 05:28 WBC RBC Hgb Hct MCV MCH MCHC RDW Plt Count Sodium Potassium Chloride Carbon Dioxide Anion Gap BUN Creatinine Est GFR ( Amer) Est GFR (Non-Af Amer) Glucose Calcium Magnesium Ammonia 15.8 07/23/16 19:27 Clean Catch Midstream Urine Culture - Final NO GROWTH 2 DAYS Impressions: Chest X-Ray 07/17/16 22:40 IMPRESSION: NO ACUTE RADIOGRAPHIC FINDING IN THE CHEST. Pelvis X-Ray 07/17/16 22:40 IMPRESSION: NO ACUTE OSSEOUS ABNORMALITY. DEGENERATIVE CHANGE ABOVE. Paracentesis Ultrasound 07/18/16 00:00 IMPRESSION: Successful ultrasound-guided diagnostic and therapeutic paracentesis Limited or Localized CT 07/18/16 02:48 IMPRESSION: PUNCTATE NONOBSTRUCTING LEFT RENAL CALCULUS WITHOUT LOWER URINARY TRACT STONES OR HYDRONEPHROSIS. STABLE DEGREE OF LARGE VOLUME ASCITES IN THE SETTING OF CIRRHOSIS. DIVERTICULOSIS WITHOUT EVIDENCE OF DIVERTICULITIS. Renal Ultrasound 07/21/16 00:00 IMPRESSION: No significant renal abnormalities were identified. Intra- abdominal and pelvic ascitic fluid is identified. Other findings as noted above Assessment & Plan - Diagnosis (1) Hepatic encephalopathy Is this a current diagnosis for this admission?: YesPlan: Patient with ammonia levels in the 40s upon arrival. Improved today to 15.8. Most likely secondary to noncompliance of treatment regimen of his end-stage liver disease. (2) End stage liver disease Is this a current diagnosis for this admission?: YesPlan: Continue current medications. Patient had 5 liters of ascites removed by paracentesis yesterday (3) Urinary tract infection Qualifiers: Urinary tract infection type: site unspecified Hematuria presence: without hematuria Qualified Code(s): N39.0 - Urinary tract infection, site not specified Is this a current diagnosis for this admission?: YesPlan: Continue , now that he's more awake will transition to oral (4) Alcohol abuse Is this a current diagnosis for this admission?: YesPlan: Folic acid and thiamine. Patient has not drank since Feb 2016 (5) Hypoalbuminemia Is this a current diagnosis for this admission?: YesPlan: Will monitor (6) Hepatorenal syndrome Is this a current diagnosis for this admission?: YesPlan: Creatinine trending downward - Time Time Spent with patient: 25-34 minutes Critical Time spent with patient: 15-24 minutes Medications reviewed and adjusted accordingly: Yes Anticipated discharge: SNF Within: when bed available
[2016-07-25] MEDS: MAGNESIUM OXIDE 400 MG TABLET PO SCH (17:41)
[2016-07-25] MEDS ORDERED: PANTOPRAZOLE SODIUM 40 MG VIAL IV ONE (19:30)
[2016-07-25 20:27] LABS: HEMATOCRIT 39.4 % (37.9-51.0); HEMOGLOBIN 12.9 g/dL (13.5-17.0); HGB HCT DIFFERENCE -0.7; MEAN CORPUSCULAR HEMOGLOBIN 31.5 pg (27.0-33.4); MEAN CORPUSCULAR HGB CONC 32.9 g/dL (32.0-36.0); RED BLOOD COUNT 4.11 10^6/uL (4.35-5.55); RED CELL DISTRIBUTION WIDTH 15.6 % (11.5-14.0); WHITE BLOOD COUNT 17.4 10^3/uL (4.0-10.5)
[2016-07-25 20:41] LABS: MEAN CORPUSCULAR VOLUME 96 fl (80-97)
[2016-07-26] MEDS: METOPROLOL TARTRATE 25 MG TABLET PO SCH ×3 (00:35→21:08)
[2016-07-26] MEDS: DOXYCYCLINE HYCLATE 100 MG TABLET PO SCH ×3 (00:35→21:08)
[2016-07-26] MEDS: HEPARIN SOD (PORCINE) 5,000 UNIT/ML 1 ML SYRINGE SUBCUT SCH ×3 (00:36→23:13)
[2016-07-26] MEDS: PANTOPRAZOLE SODIUM 40 MG VIAL IV SCH ×2 (06:39→18:05)
[2016-07-26] MEDS: SUCRALFATE 1 GM TABLET PO SCH ×3 (07:58→18:06)
[2016-07-26] MEDS: PROMETHAZINE HCL INJ 25 MG/1 ML VIAL IV PRN (09:01)
[2016-07-26] MEDS ORDERED: MORPHINE SULFATE 10 MG/ML INJ IV PRN ×2 (09:17→09:22)
[2016-07-26] MEDS: LACTULOSE SYRUP 20 GM/30 ML UDCUP PO SCH ×3 (09:19→18:06)
[2016-07-26] MEDS: FOLIC ACID 1 MG TABLET PO SCH (09:19)
[2016-07-26] MEDS: DOCUSATE SODIUM 100 MG CAPSULE PO SCH ×2 (09:19→18:06)
[2016-07-26] MEDS: MAGNESIUM OXIDE 400 MG TABLET PO SCH ×2 (09:19→18:06)
[2016-07-26] MEDS: THIAMINE HCL 100 MG TABLET PO SCH (09:19)
--- NOTE | 2016-07-26 17:25 | PDOC PROGRESS REPORT ---
Subjective Progress Note for:: 07/26/16 Subjective:: Patient is a 70-year-old male, seen on morning rounds. He presently is resting comfortably in bed. He denies any shortness of breath, cough or dyspnea. He he started vomiting coffee grounds emesis last evening. He was started on Carafate therapy by the nursing tech. He states he has some nausea, he is now vomiting dark red blood denies vomiting. His color is johnson ashen. We discussed He underwent paracentesis again 3 days ago for removal of 5 liters of ascites. He is presently awaiting care home bed for hospice care. He states his abdominal pain did dissipate after that procedure. He continues to be somewhat lethargic. He states he only wants comfort measures only. His next of kin, his son, has told staff he does not want any involvement in his care or to be called about his condition. Physical Exam Vital Signs: Temp Pulse Resp BP Pulse Ox 98.4 F 188 H 20 88/60 L 96 07/26/16 15:58 07/26/16 15:58 07/26/16 15:58 07/26/16 15:58 07/26/16 15:58 Intake & Output 07/25/16 07/26/16 07/27/16 06:59 06:59 06:59 Intake Total 2019 1296 180 Output Total Balance 2013 1296 180 Weight 123.9 kg 125.2 kg General appearance: PRESENT: disheveled, mild distress, obese, well-developed - to ashen, well-nourished Head exam: PRESENT: atraumatic, normocephalic Eye exam: PRESENT: conjunctiva pink, EOMI, PERRLA. ABSENT: scleral icterus Ear exam: PRESENT: normal external ear exam Mouth exam: PRESENT: dry mucosa, other - old blood in oral cavity Neck exam: ABSENT: carotid bruit, JVD, lymphadenopathy, thyromegaly Respiratory exam: PRESENT: accessory muscle use, crackles, decreased breath sounds, tachypnea Cardiovascular exam: PRESENT: RRR. ABSENT: diastolic murmur, rubs, systolic murmur Pulses: PRESENT: normal dorsalis pedis pul Vascular exam: PRESENT: normal capillary refill GI/Abdominal exam: PRESENT: ascites, distended, hypoactive bowel sounds, soft Rectal exam: PRESENT: deferred Extremities exam: PRESENT: full ROM. ABSENT: calf tenderness, clubbing, pedal edema Neurological exam: PRESENT: alert, awake, oriented to person, oriented to place , oriented to situation, CN II-XII grossly intact. ABSENT: motor sensory deficit Psychiatric exam: PRESENT: flat affect Skin exam: PRESENT: dry, intact, warm. ABSENT: cyanosis, rash Results Laboratory Results: 07/26/16 05:38 07/25/16 05:28 07/25/16 07/26/16 20:15 05:38 WBC 17.4 H Cancelled RBC 4.11 L Cancelled Hgb 12.9 L Cancelled Hct 39.4 Cancelled MCV 96 Cancelled MCH 31.5 Cancelled MCHC 32.9 Cancelled RDW 15.6 H Cancelled Plt Count 92 L Cancelled Impressions: Chest X-Ray 07/17/16 22:40 IMPRESSION: NO ACUTE RADIOGRAPHIC FINDING IN THE CHEST. Pelvis X-Ray 07/17/16 22:40 IMPRESSION: NO ACUTE OSSEOUS ABNORMALITY. DEGENERATIVE CHANGE ABOVE. Paracentesis Ultrasound 07/18/16 00:00 IMPRESSION: Successful ultrasound-guided diagnostic and therapeutic paracentesis Limited or Localized CT 07/18/16 02:48 IMPRESSION: PUNCTATE NONOBSTRUCTING LEFT RENAL CALCULUS WITHOUT LOWER URINARY TRACT STONES OR HYDRONEPHROSIS. STABLE DEGREE OF LARGE VOLUME ASCITES IN THE SETTING OF CIRRHOSIS. DIVERTICULOSIS WITHOUT EVIDENCE OF DIVERTICULITIS. Renal Ultrasound 07/21/16 00:00 IMPRESSION: No significant renal abnormalities were identified. Intra- abdominal and pelvic ascitic fluid is identified. Other findings as noted above Assessment & Plan - Diagnosis (1) Hepatic encephalopathy Is this a current diagnosis for this admission?: YesPlan: Patient with ammonia levels in the 40s upon arrival. Improved today to 15.8. End stage liver disease. He wants comfort measures only .With [facility] (2) End stage liver disease Is this a current diagnosis for this admission?: YesPlan: Continue current medications. Patient had 5 liters of ascites removed by paracentesis yesterday (3) Urinary tract infection Qualifiers: Urinary tract infection type: site unspecified Hematuria presence: without hematuria Qualified Code(s): N39.0 - Urinary tract infection, site not specified Is this a current diagnosis for this admission?: YesPlan: Continue , now that he's more awake will transition to oral (4) Alcohol abuse Is this a current diagnosis for this admission?: YesPlan: Folic acid and thiamine. Patient has not drank since Feb 2016 (5) Hypoalbuminemia Is this a current diagnosis for this admission?: YesPlan: Will monitor (6) Hepatorenal syndrome Is this a current diagnosis for this admission?: YesPlan: Creatinine trending downward (7) GI (gastrointestinal bleed) Qualifiers: Gastritis type: unspecified gastritis Is this a current diagnosis for this admission?: Yes - Time Time Spent with patient: 25-34 minutes Critical Time spent with patient: 15-24 minutes Anticipated discharge: Home - Inpatient Certification Based on my medical assessment, after consideration of the patient's comorbidities, presenting symptoms, or acuity I expect that the services needed warrant INPATIENT care.: Yes
[2016-07-26 20:47] VITALS: BP 127/57
[2016-07-26] MEDS: MORPHINE SULFATE 10 MG/ML INJ SUBCUT PRN ×2 (21:08→23:12)
[2016-07-27] MEDS: MORPHINE SULFATE 10 MG/ML INJ SUBCUT PRN ×9 (01:04→22:31)
[2016-07-27] MEDS: PANTOPRAZOLE SODIUM 40 MG VIAL IV SCH ×2 (05:04→18:47)
[2016-07-27] MEDS: DOCUSATE SODIUM 100 MG CAPSULE PO SCH ×2 (10:14→18:47)
[2016-07-27] MEDS: THIAMINE HCL 100 MG TABLET PO SCH (10:14)
[2016-07-27] MEDS: FOLIC ACID 1 MG TABLET PO SCH (10:14)
[2016-07-27] MEDS: HEPARIN SOD (PORCINE) 5,000 UNIT/ML 1 ML SYRINGE SUBCUT SCH (10:14)
[2016-07-27] MEDS: LACTULOSE SYRUP 20 GM/30 ML UDCUP PO SCH ×2 (10:14→13:31)
[2016-07-27] MEDS: SUCRALFATE 1 GM TABLET PO SCH ×2 (10:14→15:43)
[2016-07-27] MEDS: METOPROLOL TARTRATE 25 MG TABLET PO SCH ×2 (10:14→21:01)
[2016-07-27] MEDS: MAGNESIUM OXIDE 400 MG TABLET PO SCH ×2 (10:14→18:47)
[2016-07-27] MEDS: DOXYCYCLINE HYCLATE 100 MG TABLET PO SCH ×2 (10:14→21:01)
--- NOTE | 2016-07-27 14:33 | PDOC PROGRESS REPORT ---
Subjective Progress Note for:: 07/27/16 Subjective:: The patient is currently lying in bed. Family present the bedside in the patient's care. The patient is completely unresponsive to any form of stimuli. The patient's been seen by hospice and the family has elected for the patient to remain in this facility for the next 24 hours since does appear to be eminent. Patient has anasarca and is having Edy-Espinosa style respirations. Persisting gurgle. However the patient does not appear to be in any pain and is nonresponsive. Physical Exam Vital Signs: Temp Pulse Resp BP Pulse Ox 98.5 F 105 H 21 H 127/57 H 96 07/26/16 20:47 07/26/16 20:47 07/26/16 20:47 07/26/16 20:47 07/27/16 06:04 Intake & Output 07/25/16 07/26/16 07/27/16 23:59 23:59 23:59 Intake Total 555 926 0 Output Total 6 Balance 549 926 0 Weight 123.9 kg 125.2 kg General appearance: PRESENT: disheveled, other - Chronically ill-appearing, anasarca Eye exam: PRESENT: conjunctiva pale, periorbital swelling, scleral icterus Ear exam: PRESENT: normal external ear exam Mouth exam: PRESENT: moist Neck exam: PRESENT: JVD - To the level of the right clavicle. ABSENT: tracheal deviation, tracheostomy Respiratory exam: PRESENT: crackles, rhonchi, symmetrical. ABSENT: unlabored Cardiovascular exam: PRESENT: tachycardia Vascular exam: PRESENT: pallor GI/Abdominal exam: ABSENT: distended Rectal exam: PRESENT: deferred Extremities exam: PRESENT: pedal edema, other - Anasarca Neurological exam: PRESENT: altered - Nonresponsive, awake Skin exam: PRESENT: dry, jaundice, mottled, pallor, petechiae Results Laboratory Results: 07/26/16 05:38 07/25/16 05:28 Impressions: Chest X-Ray 07/17/16 22:40 IMPRESSION: NO ACUTE RADIOGRAPHIC FINDING IN THE CHEST. Pelvis X-Ray 07/17/16 22:40 IMPRESSION: NO ACUTE OSSEOUS ABNORMALITY. DEGENERATIVE CHANGE ABOVE. Paracentesis Ultrasound 07/18/16 00:00 IMPRESSION: Successful ultrasound-guided diagnostic and therapeutic paracentesis Limited or Localized CT 07/18/16 02:48 IMPRESSION: PUNCTATE NONOBSTRUCTING LEFT RENAL CALCULUS WITHOUT LOWER URINARY TRACT STONES OR HYDRONEPHROSIS. STABLE DEGREE OF LARGE VOLUME ASCITES IN THE SETTING OF CIRRHOSIS. DIVERTICULOSIS WITHOUT EVIDENCE OF DIVERTICULITIS. Renal Ultrasound 07/21/16 00:00 IMPRESSION: No significant renal abnormalities were identified. Intra- abdominal and pelvic ascitic fluid is identified. Other findings as noted above Assessment & Plan - Diagnosis (1) Hepatorenal syndrome Is this a current diagnosis for this admission?: YesPlan: The patient's does appear to be eminent. The patient's downtrending creatinine most likely is due to volume and dilution. (2) End stage liver disease Is this a current diagnosis for this admission?: YesPlan: The patient is Comfort Care measures only will DC medications (3) Hepatic encephalopathy Is this a current diagnosis for this admission?: YesPlan: The patient's unresponsive (4) Urinary tract infection Qualifiers: Urinary tract infection type: site unspecified Hematuria presence: without hematuria Qualified Code(s): N39.0 - Urinary tract infection, site not specified Is this a current diagnosis for this admission?: YesPlan: The patient has completed course of antibiotics (5) Enterococcus faecalis infection Is this a current diagnosis for this admission?: Yes (6) Hypertensive urgency Is this a current diagnosis for this admission?: Yes (7) Hypoalbuminemia Is this a current diagnosis for this admission?: Yes (8) Alcohol abuse Is this a current diagnosis for this admission?: YesPlan: The patient does not have a current dependency as it appears the patient has not drank since February 2016. Will substitute B vitamins. (9) DVT prophylaxis Is this a current diagnosis for this admission?: YesPlan: Comfort care now - Time Time Spent with patient: 25-34 minutes Medications reviewed and adjusted accordingly: Yes Anticipated discharge: Acute Rehab Disposition: appears imminent will continue comfort care measures for now.
[2016-07-27] MEDS ORDERED: SCOPOLAMINE HYDROBROMIDE 1.5 MG PATCH.TD72 TD ONE (22:34)
[2016-07-27] MEDS ORDERED: SCOPOLAMINE HYDROBROMIDE 1.5 MG PATCH.TD72 ONE (23:24)
[2016-07-28] MEDS: MORPHINE SULFATE 10 MG/ML INJ SUBCUT PRN ×7 (00:48→15:43)
[2016-07-28] MEDS: PANTOPRAZOLE SODIUM 40 MG VIAL IV SCH (05:07)
[2016-07-28] MEDS: LORAZEPAM INJ 2 MG/1 ML VIAL IM PRN ×3 (10:27→15:44)
[2016-07-28] MEDS: DOCUSATE SODIUM 100 MG CAPSULE PO SCH (10:28)
[2016-07-28] MEDS ORDERED: ATROPINE SULFATE 1% OPH SOLN 5 ML BOTTLE SL SCH (12:00)
--- NOTE | 2016-07-28 16:31 | Death Summary ---
Summary Date : 07/28/16 Time of :: 16:20 Autopsy: No Resuscitation Status: Comfort Measures Only - Final Diagnosis (1) Hepatic encephalopathy Is this a current diagnosis for this admission?: Yes (2) End stage liver disease Is this a current diagnosis for this admission?: Yes (3) Urinary tract infection Is this a current diagnosis for this admission?: Yes (4) Alcohol abuse Is this a current diagnosis for this admission?: Yes (5) Hypoalbuminemia Is this a current diagnosis for this admission?: Yes (6) Hepatorenal syndrome Is this a current diagnosis for this admission?: Yes (7) GI (gastrointestinal bleed) Is this a current diagnosis for this admission?: Yes Hospital Course:: Patient was a 62-year-old male with past medical history of 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 After further workup is found to have high ammonia levels as well as urinary tract infection. He was given lactulose and broad-spectrum IV antibiotics. He was referred to the hospitalist service for admission. He was noted to have significant ascites on exam. He underwent ultrasound-guided paracentesis twice during this hospitalization. Each time 5 L of fluid was removed. After his pneumonia cleared the patient was coherent and able to make decisions for himself. He decided at that time he wanted to be a DO NOT RESUSCITATE, and no longer wanted aggressive measures used to prolong his life. He is agreeable to hospice services. [facility] saw the patient in consult for hospice. Initially he did not meet inpatient criteria. Social work was consult he was going to be placed and have hospice services in a long-term care facility. However on 2016, he still began having upper GI bleeding, and problems with aspiration. Comfort measures were in place. At that time he was reevaluated by [facility] for hospice and felt he was appropriate for inpatient services. Patient's son and ex- asked that has comfort measures be given here because of distance to drive to [place] and a likely imminence of his . His time of 1605 on 07/28/2016. His family was at the bedside at the time.
== END 2016-07-28 19:52 | DRG 432 ==
LOC: ER 19:24 → UNDOADMIN 07-18 05:30 → EH 07-18 05:30 → 4W 07-18 06:46 → 4S 07-25 04:20
PROVIDERS: ADMIT Internal Medicine; ATTEND Internal Medicine
PROC: 0W9G3ZZ Drainage of Peritoneal Cavity, Percutaneous Approach (ICD-10-PCS; principal; 2016-07-18)
DX: K70.40 Alcoholic hepatic failure without coma (principal); K76.7 Hepatorenal syndrome; N39.0 Urinary tract infection, site not specified; N17.9 Acute kidney failure, unspecified; K92.2 Gastrointestinal hemorrhage, unspecified; Z51.5 Encounter for palliative care; K70.31 Alcoholic cirrhosis of liver with ascites; I16.0 Hypertensive urgency; F10.21 Alcohol dependence, in remission; Z66 Do not resuscitate; J44.9 Chronic obstructive pulmonary disease, unspecified; L89.152 Pressure ulcer of sacral region, stage 2; M10.9 Gout, unspecified; F41.9 Anxiety disorder, unspecified; E88.09 Other disorders of plasma-protein metabolism, not elsewhere classified; B95.2 Enterococcus as the cause of diseases classified elsewhere; B96.20 Unspecified Escherichia coli [E. coli] as the cause of diseases classified elsewhere; Z82.49 Family history of ischemic heart disease and other diseases of the circulatory system
CPT/HCPCS: 36415; 49083; 71010; 72170; 76380; 76770; 80048; 80053; 80307; 81001; 82140; 82550; 82553; 82962; 83690; 83735; 84484; 85025; 85027; 85610; 85730; 87040; 87070; 87075; 87086; 87088; 87186; 87205; 93005; 93010; 96361; 96365; 99291; A9270-GY; J0696; J1644; J2060; J2270; J2543; J2550; J3490; J7030; J7060; S0119; S0164